=== PATIENT | female | born 1970 | race Caucasian/White ===

== ENCOUNTER → 2018-07-14 17:04 | Outpatient (CLI) | payer OTHER, SELFPAY | PROVIDERS: Family Provider Family Medicine; PCP Family Medicine; Visit Provider Nurse Practitioner Family | DX: S99.911A Unspecified injury of right ankle, initial encounter (principal); X58.XXXA Exposure to other specified factors, initial encounter | CPT/HCPCS: 73610 ==

== ENCOUNTER → 2018-08-25 08:28 | Outpatient (CLI) | payer OTHER, SELFPAY ==
--- NOTE | 2018-08-25 08:30 | BI_ITS ---
MAMMOGRAPHY - BILATERAL SCREENING REASON FOR EXAM: Female, 48 years old. Routine annual screening examination. PERTINENT HISTORY: Non-contributory. TECHNIQUE: Digital bilateral breast nenita (3D mammographic acquisition) in the CC and MLO projections. 2-D mediolateral oblique (MLO) and craniocaudad (CC) views of both breasts were obtained. CAD: Full Field Digital Mammography with Computer Added Detection was performed. COMPARISON: Comparison is made with prior study dated December 21, 2016 and June 19, 2015. FINDINGS: Breast Composition: The breasts are heterogeneously dense, which may obscure small masses. There are no dominant masses or suspicious calcifications. No other significant abnormalities are identified. There has been no significant change since the prior study. BI/SCREENING MAMM (CAD), BILAT IMPRESSION: Stable bilateral screening mammogram. Yearly follow-up mammogram recommended. (A) ASSESSMENT CATEGORY: BIRADS Category 1: Negative. A letter regarding these results will be sent to the patient by the facility within 30 days. Approximately 10% of breast cancers are not detected by mammography. A normal mammogram should not delay biopsy of a clinically suspicious abnormality. [id number] Electronically Signed: Jelani Jordan MD at 10:24 EDT Tel [phone], Service support ,
== END ==
PROVIDERS: Family Provider Family Medicine; PCP Family Medicine; Referring Provider Family Medicine; Visit Provider Family Medicine
DX: Z12.31 Encounter for screening mammogram for malignant neoplasm of breast (principal)
CPT/HCPCS: 77063; 77067

== ENCOUNTER 2020-08-29 22:30 | Emergency (ER) | payer OTHER, SELFPAY ==
[2020-08-29 22:31] VITALS: BP 112/73; PULSE 84; PULSE 87; RESP 16; TEMP 35.8; O2SAT 98; BMI 31.0
--- NOTE | 2020-08-29 22:38 | ED.RN ---
NO OLD EKGS IN MUSE
--- NOTE | 2020-08-29 23:19 | EKG12_ITS ---
Test Reason : CP Blood Pressure : / mmHG Vent. Rate : 070 BPM Atrial Rate : 070 BPM P-R Int : 158 ms QRS Dur : 090 ms QT Int : 432 ms P-R-T Axes : 045 -26 025 degrees QTc Int : 466 ms Normal sinus rhythm Normal ECG Confirmed by CHRISTAL DE LA CRUZ, DAVID ([id number]), staff editor TARYN LAY ([id number]) on 09/02/2020 12:49:18 PM Referred By: GABRIEL Confirmed By:DAVID SIEGEL MD
--- NOTE | 2020-08-29 23:20 | ED.VIS.GEN ---
History of Present Illness Chief Complaint: Chest Pain Informant: Patient Narrative: 50-year-old female with history of hiatal hernia and GERD presenting with chest pain which she describes as burning and sharp and stabbing. She is had intermittent pains for the last 3 weeks or so. She states it is sometimes more constant than others. She does not relate it to food. She tried fasting and stated that she still got intermittent pain here. She does not have shortness of breath. She is not had a cough or fever. Her last stress test was over 5 years ago. She states that it was normal. She states the only medication she takes is for GERD. Denies cardiac disease. No history of DVT/PE, no recent travel, immobilization or surgery, exogenous hormone use. Past Medical History - Allergies and Home Meds Allergies/Adverse Reactions: Allergies No Known Allergies Allergy (Verified 06/19/14 14:23) Primary Care Physician: Vince Robertson MD [Primary Care Provider] - Prior records reviewed: Yes Past Medical History: - - GERD, hiatal hernia Lives: Spouse/ Significant Other Smoking Status: Never smoker Alcohol: None Drugs: None Review of Systems General: Denies: Chills, Fever, Sweats Eyes: Denies: Visual changes - bilaterally, Diplopia ENT: Denies: Rhinorrhea, Sore throat Cardiovascular: Reports: Chest pain. Denies: Palpitations, Heart racing Respiratory: Denies: Dyspnea, Cough Gastrointestinal: Reports: Nausea. Denies: Abdominal pain, Vomiting, Diarrhea, Melena, Hematochezia Genitourinary: Denies: Dysuria, Hematuria, Frequency Musculoskeletal: Denies: Back pain, Extremity Pain Skin: Denies: Rash, Wounds Neurological: Denies: Headache, Weakness, Numbness Physical Exam Vital Signs/Narrative: Vital Signs Temp Pulse Resp BP Pulse Ox 08/29/20 22:31 96.4 F L 84 16 112/73 98 Inital Vital Signs reviewed: Yes General: Well nourished, No Acute Distress Head: Normocephalic, Atraumatic Eyes: Perrl, EOMI Cardiovascular: Regular rate, Regular rhythm, No murmurs Respiratory: No distress, CTA bilaterally, Chest nontender Extremities: Nontender, No edema Skin: Normal color, No rash. Negative for: Cyanosis, Diaphoresis Neurological: Alert, Oriented x3 Psychological: Normal affect, Normal Mood Diagnostic/Tx/Re-eval - Rhythm Strip Rhythm Strip: Sinus Rhythm Rate: 70 - EKG Initial EKG Interpretation: Sinus Rhythm, No Acute Injury Pattern - Medical Decision Making Patient was seen and evaluated on arrival for chest pain which she had been having on and off for a couple of weeks. Her heart score is 2. EKG is sinus rhythm without signs of ischemia. She is PERC negative. Initial lab work is within normal limits except for slightly low potassium. Troponin is negative. Patient will stay for delta troponin and EKG and if normal she will be discharged home to follow-up with her PCP for outpatient testing. She is amenable to this plan. Impression: 1. Chest pain ED Disposition - Plan for ED Patient: Referrals: Vince Robertson MD [Primary Care Provider] -
--- NOTE | 2020-08-29 23:27 | RAD_ITS ---
STUDY: X-RAY CHEST REASON FOR EXAM: Female, 50 years old. Chest pain for weeks. Nausea. TECHNIQUE: Single AP portable view of the chest. COMPARISON: None. FINDINGS: The lungs are clear and expanded. There is no demonstrated pleural abnormality. Normal size heart. Normal mediastinum and dao. Normal visualized pulmonary arteries. Normal visualized aortic arch and descending thoracic aorta. Normal visualized thoracic spine. Normal visualized ribs, clavicles, and shoulders. There is no demonstrated abnormality of the visualized soft tissue structures of the upper abdomen. RAD/Chest 1 View (Portable) IMPRESSION: Normal x-ray examination of the chest. Electronically Signed: Van Serrato DO at 23:46 EDT Tel [phone], Service support ,
[2020-08-29 23:31] VITALS: BP 96/66; PULSE 67; RESP 15; O2SAT 97
[2020-08-29 23:38] LABS: Anion Gap 5 (5-15); BUN 12 mg/dL (7-18); BUN/Creat Ratio 13.6 RATIO (10-20); Chloride 112 mmol/L (98-107); Creatinine, Serum 0.88 mg/dL (0.55-1.02); EST Glomerular Filtration Rate 73 mL/min (>60); Est Glom Filt Rate - Afr Amer 88 mL/min (>60); Estimated Creatinine Clearance 73.19 ml/min; Glucose 99 mg/dL (74-106); Potassium 3.4 mmol/L (3.5-5.1); Sodium Level 143 mmol/L (136-145)
[2020-08-29] MEDS: Famotidine 200 MG/20 ML MDV 20 MG in 0.9% Normal Saline (Pres. free 8 ML 300 MG IV (23:41)
[2020-08-29] MEDS: 0.9% Normal Saline 1,000 ML 1000 ML IV (23:41)
[2020-08-29] MEDS: Ondansetron 4 MG/2 ML Vial IV (23:41)
[2020-08-29 23:54] LABS: Absolute Lymphocyte Count 2.59 X10^3/uL (0.83-4.51); Absolute Neutrophil Count 5.1 X10^3/uL (2.0-7.7); Basophil# 0.02 X10^3/uL; Basophil% 0.2 % (0-1); Eosinophil# 0.11 X10^3/uL; Eosinophils% 1.3 % (0-5); Hematocrit 43.3 % (37-47); Hemoglobin 13.8 g/dL (12.0-15.0); Lymphocyte # 2.59 X10^3/ul (4.0); Lymphocyte % 31.5 % (19-41); Mean Corp Hgb Conc 31.9 g/dL (32-36); Mean Corpuscular Hgb 30.5 pg (27.0-32.0); Mean Corpuscular Volume 95.6 fL (81-99); Mean Platelet Vol. 9.6 fl (6.2-12.0); Monocyte# 0.36 X10^3/uL; Monocyte% 4.4 % (0-10); NRBC Flagged by Analyzer 0 % (0-5); Neutrophil # 5.08 X10^3/uL (2.7-7.7); Neutrophil % 61.7 % (47-70); Platelet Count 242 K/mm3 (150-450); RBC Distribution Width CV 13.5 % (11.6-14.6); Red Blood Count 4.53 M/mm3 (4.2-5.4); White Blood Count 8.2 K/mm3 (4.4-11.0)
[2020-08-30] MEDS: Morphine 2 MG/ML Syringe IV (00:24)
[2020-08-30] MEDS: Mag Hydrox/Al Hydrox/Simeth 30 ML UDC PO (00:24)
[2020-08-30 01:00] VITALS: BP 95/70; PULSE 68; RESP 20; O2SAT 99
--- NOTE | 2020-08-30 01:45 | EKG12_ITS ---
Test Reason : REPEAT CP Blood Pressure : / mmHG Vent. Rate : 057 BPM Atrial Rate : 057 BPM P-R Int : 164 ms QRS Dur : 086 ms QT Int : 470 ms P-R-T Axes : 044 -09 019 degrees QTc Int : 457 ms Sinus bradycardia Otherwise normal ECG Confirmed by CHRISTAL DE LA CRUZ, DAVID ([id number]), editorial cartoonist TARYN LAY ([id number]) on 09/02/2020 12:49:50 PM Referred By: GABRIEL Confirmed By:DAVID SIEGEL MD
[2020-08-30 02:00] VITALS: BP 99/66; PULSE 61; RESP 16; O2SAT 98
[2020-08-30 02:44] VITALS: BP 97/72; PULSE 71; RESP 18; O2SAT 97
== END 2020-08-30 02:45 | disposition home or self-care (01) ==
PROVIDERS: Emergency Provider Student in an Organized Health Care Education/Training Program; PCP Family Medicine
DX: R07.9 Chest pain, unspecified (principal); K21.9 Gastro-esophageal reflux disease without esophagitis
CPT/HCPCS: 71045; 80048; 84484; 85025; 93005; 96361; 96374; 96375; 99283; J7030; A4216; J2405; J3490

== ENCOUNTER 2023-12-13 19:32 | Emergency (ER) | payer OTHER, SELFPAY ==
[2023-12-13 19:34] VITALS: BP 125/90; PULSE 94; RESP 20; TEMP 36.3; O2SAT 100; BMI 34.4
--- NOTE | 2023-12-13 21:00 | RAD_ITS ---
INDICATION: chest pain EXAMINATION/TECHNIQUE: X-RAY - portable upright AP chest x-ray COMPARISON: 08/29/2020 FINDINGS: LINES/DEVICES: None. LUNGS: No consolidation, edema or effusion. No pneumothorax. MEDIASTINUM AND CARDIOVASCULAR STRUCTURES: Cardiac silhouette not enlarged. Central airways and mediastinal contour are unremarkable. BONES AND SOFT TISSUES: Unremarkable. RAD/Chest 1 View (Portable) IMPRESSION: No radiographic evidence of acute cardiopulmonary disease. Electronically Signed: Arsh Henson MD at 21:50 EST ,
[2023-12-13 21:01] LABS: Absolute Lymphocyte Count 1.21 X10^3/uL (0.83-4.51); Absolute Neutrophil Count 14.1 X10^3/uL (2.0-7.7); Basophil# 0.04 X10^3/uL; Basophil% 0.2 % (0-1); Eosinophil# 0.03 X10^3/uL; Eosinophils% 0.2 % (0-5); Hematocrit 46.3 % (37-47); Lymphocyte # 1.21 X10^3/ul (0.83-4.51); Lymphocyte % 7.5 % (19-41); Mean Corp Hgb Conc 32.4 g/dL (32-36); Mean Corpuscular Hgb 29.7 pg (27.0-32.0); Mean Corpuscular Volume 91.7 fL (81-99); Mean Platelet Vol. 9.5 fl (6.2-12.0); Monocyte# 0.72 X10^3/uL; Monocyte% 4.4 % (0-10); NRBC Flagged by Analyzer 0 % (0-5); Neutrophil # 14.11 X10^3/uL (2.7-7.7); Neutrophil % 87.2 % (47-70); Platelet Count 290 K/mm3 (150-450); RBC Distribution Width CV 13.8 % (11.6-14.6); RBC Distribution Width SD 46.4 fl (35.1-43.9); Red Blood Count 5.05 M/mm3 (4.2-5.4); White Blood Count 16.2 K/mm3 (4.4-11.0)
[2023-12-13 21:14] LABS: Internal QC Validated? YES +Cl - CLEAR BKGD; Pregnancy, Serum, hCG Quali. NEGATIVE Negative
--- NOTE | 2023-12-13 21:15 | EX.ED.DYSGE1 ---
HPI History of Present Illness Chief Complaint: Palpitations Informant: patient Narrative Narrative: Patient presents with nausea vomiting diarrhea and palpitations. Patient states she has been feeling good all day. She and her went to the grocery store. On the way back she started feel very nauseated. No pain at the time. She made at home but then she started to vomit. She states she then sat on the toilet for about an hour. She had multiple episodes of vomiting and diarrhea. What concerned her is that she had intermittent palpitations then. She states she really did not have chest pain. She always has a little pressure from a hiatal hernia but that is unchanged. She never saw blood in the vomitus or stool. She states she still nauseated now but it seems to have calm down a fair amount already. She did have some abdominal cramping but none at this time. No fevers. No coughing or trouble breathing. She has no history of high blood pressure, cholesterol, diabetes or family history of heart disease. She does not know her father's history side. She is on no routine medications other than herbal medications for menopause. PFSH PFSH Home Medications naproxen 500 mg tablet 500 mg PO BID PRN #20 tabs 04/27/16 [Rx Last Taken Unknown] sucralfate 1 gram tablet 1 gm PO 4X/DAY #40 tabs 08/30/20 [Rx Last Taken Unknown] ondansetron 4 mg disintegrating tablet 4 mg PO Q8H PRN PRN Nausea #10 tabs 12/13/23 [Rx Last Taken Unknown] promethazine 25 mg tablet 25 mg PO Q6H PRN PRN Nausea #10 TABLETS 12/13/23 [Rx Last Taken Unknown] Allergy/AdvReac Type Severity Reaction Status Date / Time No Known Allergies Allergy Verified 12/13/23 19:34 Social History Smoking Status: Never smoker ROS ROS ED Constitutional Constitutional ED: Denies chills, fever(s) or subjective Eyes Eyes: Denies change in vision ENT ENT ED: Denies rhinorrhea or sore throat Cardiovascular Cardiovascular: Reports palpitations and racing heartbeat; Denies chest pain Respiratory/Chest Respiratory/Chest: Denies cough or dyspnea Gastrointestinal Gastrointestinal: Reports abdominal pain, diarrhea, nausea and vomiting; Denies constipation or melena Genitourinary Genitourinary ED: Denies dysuria or hematuria Musculoskeletal Musculoskeletal: Denies myalgias Integumentary Denies rash Neurologic Neurologic: Denies headache(s), paresthesias or weakness Hematologic/Lymphatic Hematologic/Lymphatic: Denies easy bleeding or easy bruising Allergic/Immunologic Allergic/Immunologic ED: Denies urticaria EXAM Physical Exam Narrative Exam Narrative: CONSTITUTIONAL: Patient is nontoxic in appearance. The patient looks comfortable. HEENT: No notable trauma. Mucous membranes mildly dry. EYES: No conjunctival injection. No petechiae. No icterus or pallor. CARDIOVASCULAR: Regular rate. Regular rhythm. No notable murmur. No JVD. Her heart rate sounds very normal at this time. RESPIRATORY: No respiratory distress. Breathing is unlabored. No wheezes. No rhonchi. No rales. No pain with a deep breath. GASTROINTESTINAL: Not distended. Bowel sounds are normal. No tenderness. No guarding. No rebound. No palpable mass. No bruit. Overall very benign abdomen. GENITOURINARY: No tenderness over the bladder. No CVA tenderness. MUSCULOSKELETAL: Atraumatic. No peripheral edema. No cord. No tenderness along the deep venous system. No asymmetry. NEUROLOGICAL: Patient is alert and appropriate. No focal deficit noted. SKIN: No noted rashes. No diaphoresis. PSYCHIATRIC: Patient is calm. Mood is appropriate. Const Vital Signs: 12/13/23 19:34 12/13/23 21:40 12/13/23 21:40 Temperature 97.3 F L 98.2 F Temperature Source Temporal Temporal Pulse Rate 94 74 74 Respiratory Rate 20 H 16 16 Respiratory Effort Respiratory Depth Respiratory Pattern Blood Pressure 125/90 H 102/52 L 102/52 L Blood Pressure Mean 101 68 68 Pulse Ox 100 94 96 Oxygen Delivery Method Room Air Room Air Room Air 12/13/23 21:47 12/13/23 21:49 12/13/23 23:01 Temperature 98 F Temperature Source Oral Pulse Rate 61 Respiratory Rate 17 Respiratory Effort Normal Non-Labored Normal Non-Labored Respiratory Depth Normal Respiratory Pattern Normal Blood Pressure 101/74 Blood Pressure Mean 83 Pulse Ox 97 Oxygen Delivery Method Room Air Room Air 12/13/23 23:01 Temperature 98 F Temperature Source Oral Pulse Rate 70 Respiratory Rate 17 Respiratory Effort Respiratory Depth Respiratory Pattern Blood Pressure 101/64 Blood Pressure Mean 76 Pulse Ox 96 Oxygen Delivery Method Room Air MDM MDM MDM Narrative Medical decision making narrative: Patient's white count is mildly elevated but this is a nonspecific symptom. It could be from infection or demargination. Her electrolytes showed minimally low potassium at 3.3 but that should self-correct. I am reluctant to replace this as its major side effect is nausea which is the patient's major complaint. Patient's liver function test are normal. Her is negative. Her troponin is unmeasurable and this is almost 4 to 5 hours after the initial onset of her symptoms. I do not think we need a delta as she never had chest pain. Urinalysis is not a clean-catch but shows no sign of infection. My independent interpretation of the patient's single AP chest x-ray shows no acute process and final reading is same. Patient was given IV fluids and Zofran. This did help. But she had some nausea still. We gave her more Zofran and Phenergan which has helped. She has not had vomiting in 2-1/2 hours. She states nausea is controlled and she just wants to go home and rest now. I think she likely has a viral syndrome. We discussed that this could be COVID or influenza but I do not think we need to treat with antivirals and she does not want them. Therefore I do not think there is a need to check that. Lab Data Attestation: I reviewed the patient's lab results. Labs: Laboratory Results - last 24 hr 12/13/23 12/13/23 20:49 22:23 WBC 16.2 H RBC 5.05 Hgb 15.0 Hct 46.3 MCV 91.7 MCH 29.7 MCHC 32.4 RDW Std Deviation 46.4 H RDW Coeff of Pamella 13.8 Plt Count 290 MPV 9.5 Immature Gran % (Auto) 0.500 Neut % (Auto) 87.2 H Lymph % (Auto) 7.5 L Jasper % (Auto) 4.4 Eos % (Auto) 0.2 Baso % (Auto) 0.2 Absolute Neuts (auto) 14.1 H Absolute Lymphs (auto) 1.21 Nucleated RBC % 0 Sodium 139 Potassium 3.3 L Chloride 107 Carbon Dioxide 24.0 Anion Gap 8 BUN 15 Creatinine 0.94 Estim Creat Clear Calc 83.13 Est GFR (MDRD) Af Amer 81 Est GFR (MDRD) Non-Af 67 BUN/Creatinine Ratio 15.9 Glucose 106 Calcium 8.8 Total Bilirubin 0.30 AST 11 L ALT 18 Alkaline Phosphatase 96 Troponin I High Sens < 3 L Total Protein 8.0 Albumin 3.7 Globulin 4.3 H Albumin/Globulin Ratio 0.9 Serum , Qual NEGATIVE Urine Color Yellow Urine Clarity Clear Urine pH 5.0 Ur Specific [place] 1.025 Urine Protein 15 H Urine Glucose (UA) Normal Urine Ketones 5 H Urine Occult Blood Negative Urine Nitrite Negative Urine Bilirubin 1 H Urine Urobilinogen Normal Ur Leukocyte Esterase 25 H Urine RBC 0 SEEN Urine WBC 0 SEEN Ur Squamous Epith Cells 10-25 SEEN Urine Bacteria 1+ Urine Mucus 0 SEEN Radiography Diagnostic Testing: Clinical Impression(s) from Imaging Studies Chest X-Ray 12/13/23 21:00 IMPRESSION: No radiographic evidence of acute cardiopulmonary disease. Electronically Signed: Arsh Henson MD at 21:50 EST Reading Location ID and State: [address] [place] [address] Tel , Service support , Discharge Plan Triage Chief Complaint: Palpitations Other Complaint: Nausea/Vomiting Shortness of Breath ED Provider: Roland Quintero Dx/Rx/DC Orders Clinical Impression: Nausea vomiting and diarrhea, Heart palpitations Instructions: ED Diet Vomiting Diarrhea, ED Palpitations Prescriptions: New promethazine [promethazine] 25 mg tablet 25 mg PO Q6H PRN PRN (Reason: Nausea) Qty: 10 0RF ondansetron [ondansetron] 4 mg tablet,disintegrating 4 mg PO Q8H PRN PRN (Reason: Nausea) Qty: 10 0RF No Action naproxen 500 MG tablet 500 mg PO BID PRN Qty: 20 0RF sucralfate 1 GM tablet 1 gm PO 4X/DAY Qty: 40 0RF Primary Care Provider: AL DALAL Referrals: Vince Robertson MD [Med Staff - Transitions Rn Care Coordinator] - 1-2 Days if not improving Disposition Disposition: Home, Self Care
[2023-12-13] MEDS: Ondansetron 4 MG/2 ML Vial IV ×2 (21:19→22:58)
[2023-12-13] MEDS: 0.9% Normal Saline (1000mL) 1,000 ML 999 ML IV (21:19)
[2023-12-13 21:20] LABS: ALB/GLOB Ratio 0.9 RATIO (0.9-2.4); AST(SGOT) 11 U/L (15-37); Alanine Aminotransfer ALT/SGPT 18 U/L (13-56); Albumin, Serum 3.7 g/dL (3.2-5.0); Alkaline Phosphatase 96 U/L (45-117); Anion Gap 8 (5-15); BUN 15 mg/dL (7-18); BUN/Creat Ratio 15.9 RATIO (10-20); Calcium,Total 8.8 mg/dL (8.5-10.1); Chloride 107 mmol/L (98-107); Creatinine, Serum 0.94 mg/dL (0.55-1.02); EST Glomerular Filtration Rate 67 mL/min (>60); Est Glom Filt Rate - Afr Amer 81 mL/min (>60); Estimated Creatinine Clearance 83.13 ml/min; Globulin 4.3 g/dL (2.2-4.2); Glucose 106 mg/dL (74-106); Potassium 3.3 mmol/L (3.5-5.1); Sodium Level 139 mmol/L (136-145); Troponin-I HS (w/2H Reflex) < 3 pg/mL (3.0-54.0)
--- OUTSIDE RECORDS SUMMARY | 2023-12-13 21:31 | XMS RPT_ITS | CCD ---
Author Name Unknown Address [id number] [place] [address] Organization [facility] Care Team Providers Care Sweeper Driver Name Role Phone BERNHART, TERRA Unavailable Unavailable [facility] Unavailable Unavailable [facility] Unavailable Unavailable BERNHART, TERRA Unavailable Unavailable [facility] Unavailable Unavailable BERNHART, TERRA Unavailable Unavailable [facility] Unavailable Unavailable [facility] Unavailable Unavailable BOLOGNA, SAURABH A Unavailable Unavailable BOLOGNA, SAURABH A Unavailable Unavailable [facility] Unavailable Unavailable BOLOGNA, SAURABH A Unavailable Unavailable BERNHART, TERRA ([employer]) Unavailable Unavaila ble BERNHART, TERRA ([employer]) Unavailable Unavaila ble BERNHART, TERRA ([employer]) Unavailable Unavaila ble BOLOGNA, SAURABH A Unavailable Unavailable BOLOGNA, SAURABH A Unavailable Unavailable BOLOGNA, SAURABH A Unavailable Unavailable PROVIDER, UNKNOWN Attending Unavailable PROVIDER, UNKNOWN Admitting Unavailable PATIENT, SELF Referring Unavailable Natalia Vaca MD Primary Care Provider Natalia Vaca MD Primary Care Provider [phone] Natalia Vaca MD Primary Care Provider Natalia Vaca MD Primary Care Provider OLDER, DONA Referring Unavailable GANTA, NATALIA Primary Care Unavailable OLDER, DONA Referring Unavailable REGOTTI, KATHI Attending Unavailable GANTA, NATALIA Primary Care Unavailable OLDER, DONA Attending Unavailable GANTA, NATALIA Primary Care Unavailable EDSON, YOSELIN Referring Unavailable GANTA, NATALIA Primary Care Unavailable REGOTTI, KATHI Referring Unavailable GANTA, NATALIA Primary Care Unavailable SELF Referring Unavailable GANTA, NATALIA Primary Care Unavailable GANTA, NATALIA Primary Care Unavailable GANTA, NATALIA Referring Unavailable EDSON, YOSELIN Referring Unavailable GANTA, NATALIA Primary Care Unavailable GANTA, NATALIA Primary Care Unavailable REGOTTI, KATHI Attending Unavailable [facility] Un[facility] [place] Attending Unavailable [facility] Unavailable KATHI MOON Referring Unavailable [facility] Unavailable Medications Current Medications Medication Drug Class(es) Dates Sig (Normalized) Sig (Original) perflutren lipid microspheres 1.3 mL in NaCl (PF) 0.9% 10 mL injection (DEFINITY) (16 sources) Start: 08-26-2022 End: 11-25-2023 perflutren lipid microspheres 1.3 mL in NaCl (PF) 0.9% 10 mL injection (DEFINITY) predniSONE 10 mg oral tablet (1 source) Start: 05-14-2023 End: 05-23-2023 predniSONE (DELTASONE) 10 mg tablet Indications: Acute pain of right knee Take 4 tabs daily for 3 days, then 2 tabs daily for 3 days, then 1 tab daily for 3 days with food. 21 tablet 0 05/14/2023 05/23/2023 Active Completed/Discontinued Medications Medication Drug Class(es) Dates Sig (Normalized) Sig (Original) aspirin 81 mg delayed release oral tablet (7 sources) Platelet Aggregation Inhibitor, Nonsteroidal Anti-inflammatory Drug End: 08-26-2022 take 1 tablet by mouth once daily aspirin, enteric coated (ASPIRIN, ENTERIC COATED) 81 mg EC tablet Take 81 mg by mouth once daily. 0 08/26/2022 Discontinued (Discontinued by Patient) Problems Active Problems Problem Classification Problem Date Documented Date Episodic/Chronic Esophageal disorders (20 sources) Gastroesophageal reflux disease; Translations: [Gastro-esophageal reflux disease without esophagitis] Onset: 08-08-2019 Chronic Immunizations and screening for infectious disease (5 sources) Patient encounter status; Translations: [Encounter for immunization] Episodic Joint disorders and dislocations; trauma-related (3 sources) Crepitus of right knee joint; Translations: [Other internal derangements of right knee] 06-13-2021 Chronic Menstrual disorders (20 sources) Dysmenorrhea; Translations: [Dysmenorrhea, unspecified] Onset: 03-20-2010 03-20-2010 Chronic Other lower respiratory disease (1 source) Dyspnea; Translations: [Shortness of breath] Episodic Other non-traumatic joint disorders (1 source) Osteophyte of right knee; Translations: [Osteophyte, right knee] 06-13-2021 Episodic Other nutritional; endocrine; and metabolic disorders (1 source) Obesity; Translations: [Obesity, unspecified] Chronic Other screening for suspected conditions (not mental disorders or infectious disease) (4 sources) Mammography abnormal; Translations: [Other abnormal and inconclusive findings on diagnostic imaging of breast] Onset: 12-03-2023 Episodic Other skin disorders (1 source) Excessive sweating; Translations: [Generalized hyperhidrosis] Episodic Residual codes; unclassified (1 source) HIV screening declined; Translations: [Procedure and treatment not carried out because of patient's decision for unspecified reasons] Episodic Residual codes; unclassified (1 source) Procedure and treatment not carried out because of patient's decision for unspecified reasons; Translations: [Surgical or other procedure not carried out because of patient's decision] Episodic Unclassified (1 source) Unknown / UNK(Unknown) Onset: 12-09-2017 Urinary tract infections (20 sources) Interstitial cystitis (chronic) without hematuria; Translations: [Chronic interstitial cystitis] Onset: 12-09-2017 12-09-2017 Chronic Past or Other Problems Problem Classification Problem Date Documented Da te Episodic/Chronic Cardiac dysrhythmias (20 sources) Palpitations; Translations: [Palpitations] Onset: 04-08-2013 Episodic Genitourinary symptoms and ill-defined conditions (20 sources) Urgency of urination; Translations: [Urgency of urination] Onset: 12-09-2017 12-09-2017 Episodic Nonspecific chest pain (20 sources) Chest pain; Translations: [Chest pain, unspecified] Onset: 04-08-2013 Episodic Other non-traumatic joint disorders (9 sources) Pain in right knee; Translations: [Pain in joint, lower leg] Onset: 07-14-2023 Episodic Pathological fracture (4 sources) Fracture of femur; Translations: [Pathological fracture, right femur, initial encounter for fracture] Onset: 07-28-2023 07-28-2023 Episodic Results Test Name Value Interpretation Reference Range Facil ity Vital Signs Date Time Vital Sign Value Performing Clinician Myles hobbs 07-14-2023 13:10-0400 Body height 167.6 cm Kathi Moon PA-C Work Phone: [facility] 07-14-2023 13:10-0400 Body weight 93.44 kg Kathi Sarai CASTILLO Work Phone: [facility] 06-07-2023 13:40-0400 Body weight 92.99 kg Dona Older ENTRY LEVEL SALES CONSULTANT.[employer] Work Phone: [facility] 06-07-2023 13:40-0400 Diastolic blood pressure 70 mm[Hg] Dona Older ENTRY LEVEL SALES CONSULTANT.[employer] Work Phone: [facility] 06-07-2023 13:40-0400 Heart rate 76 /min Dona Older ENTRY LEVEL SALES CONSULTANT.[employer] Work Phone: [facility] 06-07-2023 13:40-0400 Respiratory rate 16 /min Dona Older ENTRY LEVEL SALES CONSULTANT.[employer] Work Phone: [facility] 06-07-2023 13:40-0400 Systolic blood pressure 128 mm[Hg] Dona Older ENTRY LEVEL SALES CONSULTANT.[employer] Work Phone: [facility] 05-14-2023 12:02-0400 Body temperature 97.9 [degF] Yoselin Edson ENTRY LEVEL SALES CONSULTANT.[employer] Work Phone: [facility] 05-14-2023 12:02-0400 Body weight 92.26 kg Yoselin Edson ENTRY LEVEL SALES CONSULTANT.[employer] Work Phone: [facility] 05-14-2023 12:02-0400 Diastolic blood pressure 74 mm[Hg] Yoselin Edson ENTRY LEVEL SALES CONSULTANT.[employer] Work Phone: [facility] 05-14-2023 12:02-0400 Heart rate 82 /min Yoselin Edson ENTRY LEVEL SALES CONSULTANT.[employer] Work Phone: [facility] 05-14-2023 12:02-0400 Respiratory rate 18 /min Yoselin Edson ENTRY LEVEL SALES CONSULTANT.[employer] Work Phone: [facility] 05-14-2023 12:02-0400 SaO2% (BldA) [Mass fraction] 98 % Yoselin Edson ENTRY LEVEL SALES CONSULTANT.[employer] Work Phone: [facility] 05-14-2023 12:02-0400 Systolic blood pressure 132 mm[Hg] Yoselin Edson ENTRY LEVEL SALES CONSULTANT.[employer] Work Phone: [facility] 09-28-2022 08:57-0500 Body weight 88 kg Dona Older ENTRY LEVEL SALES CONSULTANT.[employer] Work Phone: [facility] 09-28-2022 08:57-0500 Diastolic blood pressure 68 mm[Hg] Dnoa Older ENTRY LEVEL SALES CONSULTANT.[employer] Work Phone: [facility] 09-28-2022 08:57-0500 Heart rate 68 /min Dona Older ENTRY LEVEL SALES CONSULTANT.[employer] Work Phone: [facility] 09-28-2022 08:57-0500 Respiratory rate 16 /min Dona Older ENTRY LEVEL SALES CONSULTANT.[employer] Work Phone: [facility] 09-28-2022 08:57-0500 Systolic blood pressure 122 mm[Hg] Dona Older ENTRY LEVEL SALES CONSULTANT.[employer] Work Phone: [facility] 08-26-2022 15:38-0400 Body weight 88 kg Dona Older ENTRY LEVEL SALES CONSULTANT.[employer] Work Phone: [facility] 08-26-2022 15:38-0400 Diastolic blood pressure 78 mm[Hg] Dona Older ENTRY LEVEL SALES CONSULTANT.[employer] Work Phone: [facility] 08-26-2022 15:38-0400 Heart rate 64 /min Dona Older ENTRY LEVEL SALES CONSULTANT.[employer] Work Phone: [facility] 08-26-2022 15:38-0400 Respiratory rate 16 /min Dona Older ENTRY LEVEL SALES CONSULTANT.[employer] Work Phone: [facility] 08-26-2022 15:38-0400 Systolic blood pressure 114 mm[Hg] Dona Older ENTRY LEVEL SALES CONSULTANT.[employer] Work Phone: [facility] 05-05-2022 09:09-0400 Body weight 94.35 kg Sinai Goodson ENTRY LEVEL SALES CONSULTANT.PSYCHIATRY PHYSICIAN Work Phone: [facility] 05-05-2022 09:09-0400 Diastolic blood pressure 70 mm[Hg] Sinai Goodson ENTRY LEVEL SALES CONSULTANT.PSYCHIATRY PHYSICIAN Work Phone: [facility] 05-05-2022 09:09-0400 Heart rate 60 /min Sinai Ochoas ENTRY LEVEL SALES CONSULTANT.PSYCHIATRY PHYSICIAN Work Phone: [facility] 05-05-2022 09:09-0400 Respiratory rate 16 /min Sinai Ochoas ENTRY LEVEL SALES CONSULTANT.PSYCHIATRY PHYSICIAN Work Phone: [facility] 05-05-2022 09:09-0400 Systolic blood pressure 110 mm[Hg] Sinai Ochoas ENTRY LEVEL SALES CONSULTANT.PSYCHIATRY PHYSICIAN Work Phone: [facility] Encounters Encounter Date Encounter Type Care Provider Facility Start: 12-03-2023 End: 12-03-2023 ambulatory NATALIA VACA Facility:[facility] Start: 11-10-2023 ambulatory Natalia Beatty Work Phone: Internal Medicine [facility] Start: 11-04-2023 End: 11-04-2023 ambulatory NATALIA NOLA Facility:[facility] Start: 09-16-2023 End: 09-16-2023 ambulatory KATHI MOON Facility:[facility] Start: 09-16-2023 End: 09-16-2023 Patient encounter procedure Kathi Moon PA-C Work Phone: Orthopaedics Procedures Date Procedure Procedure Detail Performing Clinician Start: 07-20-2023 Mri any jt lower extrem w/o contrast matrl Kathi MARTINEZ-Evelyn Work Phone: Start: 07-16-2023 Lipid 1996 panel - Serum or Plasma Lorenzo Bird AT Work Phone: Start: 05-14-2023 Radiologic exam knee complete 4/more views Yoselin Sandhu ENTRY LEVEL SALES CONSULTANT.[employer] Work Phone: Start: 09-29-2022 End: 09-29-2022 Mammography Dona Older ENTRY LEVEL SALES CONSULTANT.[employer] Work Phone: Start: 08-26-2022 Mammography Dona Older ENTRY LEVEL SALES CONSULTANT.[employer] Work Phone: Start: 10-17-2021 Colonoscopy Sinai Goodson ENTRY LEVEL SALES CONSULTANT.CN S Work Phone: Start: 08-21-2021 Radiologic exam knee complete 4/more views Megan Velazquez PA-C Work Phone: Start: 08-20-2021 Mammography Sinai Goodson LALITA.CN S Work Phone: Start: 08-19-2021 Adult depression screening assessment Sinai Goodson LALITA.PSYCHIATRY PHYSICIAN Work Phone: Start: 06-13-2021 Mri any jt lower extrem w/o contrast matrl Volodymyr Paul PA-C Work Phone: Start: 04-28-2021 Radiologic examination knee 1/2 views [facility] Provider Start: 08-26-2019 Electrocardiogram Plan of Treatment Date Care Activity Detail Author Start: 10-17-2031 Colonoscopy COLONOSCOPY [facility] Start: 10-17-2031 COLORECTAL CANCER SCREENING COLORECTAL CANCER SCREENING [facility] Start: 10-17-2031 Screening for malignant neoplasm of colon [facility] Start: 07-16-2028 Lipid 1996 panel - Serum or Plasma Lipid Screening [facility] Start: 07-16-2028 Lipid panel Lipid Screening [facility] Start: 05-05-2027 LIPID SCREEN LIPID SCREEN [facility] Start: 09-01-2026 LIPID SCREEN LIPID SCREEN [facility] Start: 08-28-2026 Urine microalbumin profile DTaP,Tdap,Td Vaccine (2 - Td or Tdap) [facility] Start: 07-16-2026 Diabetes Screening Diabetes Screening [facility] Start: 08-03-2025 DIABETES SCREEN DIABETES SCREEN [facility] Start: 05-05-2025 DIABETES SCREEN DIABETES SCREEN [facility] Start: 07-31-2024 DIABETES SCREEN DIABETES SCREEN [facility] Start: 11-08-2023 Depression Assessment Depression Assessment [facility] Start: 09-29-2023 Mammography [facility] Start: 09-29-2023 Screening for malignant neoplasm of breast Mammogram Screening [facility] Start: 08-26-2023 Mammography MAMMOGRAM [facility] Start: 07-09-2023 Covid-19 Vaccine ( season) Covid-19 Vaccine () [facility] Start: 07-09-2023 Influenza vaccination [facility] Start: 06-07-2023 End: 08-07-2023 CBC W Auto Differential panel - Blood CBC + DIFF Lab Routine Annual physical exam Expected: 06/07/2023, Expires: 08/07/2023 [facility] Work Phone: Payers Date Payer Category Payer Unknown [id number] 2020 Private Health Insurance [employer] A ETNA CHOICE POS II [id number] 2020-Present [phone] [address] [place] [address] POS [id number] 2020 Private Health Insurance [id number] 2020 Unknown [id number] 1970 Unknown [id number] Private Health Insurance [id number] Social History Date Type Detail Facility Start: 12-10-2012 End: 07-14-2023 Tobacco smoking status NHIS Ex-smoker [facility] End: 11-08-2016 History of tobacco use Current smoker [facility] End: 11-08-2016 History of tobacco use Cigarette Smoker [facility] Start: 12-10-2012 End: 07-14-2023 Tobacco use and exposure Smokeless tobacco non-user [facility] Start: 05-05-2022 End: 11-04-2023 Alcohol intake Current drinker of alcohol (finding) [facility] Start: 05-05-2022 End: 07-14-2023 Alcohol intake [facility] Start: 08-19-2021 History SDOH Alcohol Frequency 3 [facility] Start: 08-19-2021 End: 08-26-2022 History SDOH Alcohol Std Drinks 2 [facility] Start: 08-19-2021 End: 08-26-2022 History SDOH Alcohol Binge 1 [facility] Start: 12-09-2017 History SDOH Alcohol Comment occassionally [facility] Start: 08-19-2021 History SDOH Social Connections Phone 5 [facility] Start: 08-19-2021 History SDOH Social Connections [facility] 98 [facility] Start: 08-19-2021 History SDOH Physical Activity DPW 0 [facility] Start: 08-19-2021 Education 12 [facility] Start: 09-28-2019 End: 07-14-2023 Tobacco Comment Used to smoke 1 pack every 3-4 days [facility] Start: 1970 Sex Assigned At Female [facility] Start: 03-29-2021 End: 09-29-2022 Exposure to SARS-CoV-2 (event) Not sure [facility] Work Phone: Start: 05-25-2022 End: 06-04-2022 Exposure to SARS-CoV-2 (event) Unable to assess [facility] Start: 08-19-2021 End: 07-14-2023 Social connection and isolation panel [facility] How often do you att end congregation or congregational services? Patient refused [facility] Do you belong to any clubs or organizations such as congregation groups, unions, fraternal or athletic groups, or school groups? No [facility] Are you now , , , , never or living with a partner? [facility] How often to you hav e a drink containing alcohol? 2-4 times a month [facility] How many standard dr inks containing alcohol do you have on a typical day? 3 or 4 [facility] How often do you hav e 6 or more drinks on 1 occasion? Never [facility] Do you feel stress - tense, restless, nervous, or anxious, or unable to sleep at night because your mind is troubled all the time - these days [OSQ] Not at all [facility] (I/We) worried daniela er (my/our) food would run out before (I/we) got money to buy more. Never true [facility] Start: 09-28-2019 Gender identity Identifies as female gender (finding) [facility] Start: 09-28-2019 Sexual orientation Heterosexual (finding) [facility] How many standard dr inks containing alcohol do you have on a typical day? 1 or 2 [facility] How often do you hav e 6 or more drinks on 1 occasion? Less than monthly [facility] Start: 09-28-2019 Education 13 [facility] Medical Equipment Procedure Code Equipment Code Equipment Origin al Text Equipment Identifier Dates [id number] Implant - [id number] Start: 08-13-2010 Clinical Notes 04-07-2013 to 12-03-2023 Kathi Moon PA-C - 09/16/2023 3:19 PM ESTTelephone Encounter - Colleen Briggs Ma - 08/23/2023 3:08 PM EDTTelephone Encounter - Kathi Moon PA-C - 08/18/2023 4:17 PM EDT Note Date & Type Note Facility 12-03-2023 Note HNO ID: [id number] Author: MARGARET LLANES Mammo Tech Service: ? Author Type: Brewmaster Type: Progress Notes Filed: 12/03/2023 14:37 Note Text: Radiology Service Progress Note PATIENT NAME: Janet Montesinos DATE OF SERVICE: December 03, 2023 TIME: 2:19 PM PATIENT IDENTITY VERIFICATION COMPLETED USING TWO (2) IDENTIFIERS: Name and Date of confirmed by patient verbally. FALL SCREENING: Has the patient had 2 falls in the last year or 1 fall with injury or currently using an Ambulatory Assistive Device (Walker, Cane, Wheelchair, Crutches, etc.)? No PATIENT GENDER DATA: Female. status: : No status: NO. PATIENT RELEVANT IMPLANT DATA REVIEWED: Not Applicable PATIENT PRESENTS WITH AN IMPLANTABLE OR ATTACHED COMMUTER PILOT: No RADIOLOGY DEPARTMENT: Mammography PERIPHERAL IV DATA: Not applicable SIGNED BY: Margaret Llanes [employer] Anna December 03, 2023 2:19 PM [facility] 11-10-2023 Note Patient Outreach (IN [facility]) JANET MONTESINOS ([id number]) 1970 F Date Time Provider Department 11/10/23 NATALIA VACA During your visit today, we recorded the following information about you: Allergies As of Date: 11/10/2023 (No Known Allergies) Date Reviewed: 11/04/2023 Reviewed by: Becky العراقي LPN - Fully Assessed Visit Diagnosis:Encounter for screening mammogram for breast cancer [Z12.31] Order(s):RADHA CISNEROS [[id number]] Order #: [id number] FUTURE Prescriptions as of 11/15/2023 - ibuprofen (MOTRIN) 600 mg tablet Take 1 tablet by mouth every 8 hours as needed for pain. - omeprazole (PRILOSEC) 20 mg capsule Take 1 capsule by mouth once daily. - famotidine (PEPCID) 20 mg tablet Take 1 tablet by mouth at bedtime as needed. - semaglutide (OZEMPIC) 0.25 mg or 0.5 mg(2 mg/1.5 mL) pen Inject 0.5 mg subcutaneously one time a week. - vitamin D3-vitamin K2, MK4, (K2 PLUS D3) 1,000-100 unit-mcg tab Take as directed - OTC NUTRITIONAL SUPPLEMENT Calcium 1000 mg + Magnesium 500 mg + Zinc 25 mg take 4 capsules daily Facility-Administered Medications as of 11/15/2023 - perflutren lipid microspheres 1.3 mL in NaCl (PF) 0.9% 10 mL injection (DEFINITY) - sodium chloride 0.9 % (flush) 10 mL (BD POSIFLUSH) Meds Comments as of 12/22/2017: No current medications Problem List As Of Date 11/10/2023 Noted Resolved Dysmenorrhea [N94.6] 03/20/2010 Menorrhagia [N92.0] 03/20/2010 SUMMARY [V999.95] 04/07/2013 04/08/2013 Chest pain [R07.9] 04/08/2013 Palpitations [R00.2] 04/08/2013 IC (interstitial cystitis) [N30.10] 12/09/2017 Urgency of urination [R39.15] 12/09/2017 GERD (gastroesophageal reflux disease) [K21.9] 08/2019 Encounter Status:Closed by JANICE JACKSON on 11/15/23 [facility] 11-04-2023 Note HNO ID: [id number] Author: Yoselin Sandhu APRN.[employer] Service: ? Author Type: Nurse Practitioner Type: Progress Notes Filed: 11/04/2023 2:24 PM Note Text: Subjective HPI HPI Janet Montesinos is a 53 year old female who presents today for CC of right foot pain/swelling, no injury noted. This started few weeks ago. Has tried otc medication for relief. Symptoms are worsened by rom/walking. Risk factors recently on crutches for knee injury, pain started after getting off crutches. .Patient presents with: right foot pain: Right foot pain and swelling x > 1 month-was using crutches prior not sure if this is the cause PAST MEDICAL HISTORY Diagnosis Date Abdominal pain Depression resolved Dysmenorrhea 03/20/2010 GERD (gastroesophageal reflux disease) 08/2019 Hiatal hernia IC (interstitial cystitis) Menorrhagia 03/20/2010 Urgency of urination PAST SURGICAL HISTORY Procedure Laterality Date ABDOMINAL SURGERY HX BLADDER SURGERY HX bladder stretch COLONOSCOPY FLX DX W/COLLJ SPEC WHEN PFRMD 10/17/2021 HYSTERECTOMY 2011 HYSTEROSCOPY BI TUBE OCCLUSION W/PERM IMPLNTS 08/13/2010 ESSURE PROCEDURE performed by MELISSA LAU at OR HYSTEROSCOPY ENDOMETRIAL ABLATION 08/13/2010 HYSTEROSCOPY, ABLATION ENDOMETRIAL NOVASURE performed by MELISSA LAU at OR SKIN BIOPSY HX VAGINAL HYSTERECTOMY ALLERGIES Patient has no known allergies. MEDICATIONS ibuprofen (MOTRIN) 600 mg tabletTake 1 tablet by mouth every 8 hours as needed for pain.Disp: 30 tabletRfl: 1 omeprazole (PRILOSEC) 20 mg capsuleTake 1 capsule by mouth once daily.Disp: 90 capsuleRfl: 3 predniSONE (DELTASONE) 10 mg tabletTake 4 tabs daily for 3 days, then 2 tabs daily for 3 days, then 1 tab daily for 3 days with food.Disp: 21 tabletRfl: 0 famotidine (PEPCID) 20 mg tabletTake 1 tablet by mouth at bedtime as needed.Disp: 30 tabletRfl: 1 (Patient not taking: Reported on 05/14/2023) semaglutide (OZEMPIC) 0.25 mg or 0.5 mg(2 mg/1.5 mL) penInject 0.5 mg subcutaneously one time a week.Disp: 2 EachRfl: 5 (Patient not taking: Reported on 05/14/2023) vitamin D3-vitamin K2, MK4, (K2 PLUS D3) 1,000-100 unit-mcg tabTake as directedDisp: Rfl: OTC NUTRITIONAL SUPPLEMENTCalcium 1000 mg + Magnesium 500 mg + Zinc 25 mg take 4 capsules dailyDisp: Rfl: FAMILY HISTORY Problem Relation Age of Onset Blood Disease Mother Blood Clots other (Migraines) Mother Hypertension Father Prostate Cancer Maternal Grandfather Heart Other Heart Issues on Paternal side of family Blood Clots Maternal Grandmother Colon Cancer No Family History Social History Tobacco Use Smoking status: Former Types: Cigarettes Quit date: 2016 Years since quittin.9 Smokeless tobacco: Never Tobacco comments: Used to smoke 1 pack every 3-4 days Vaping Use Vaping Use: Never used Substance Use Topics Alcohol use: Yes Alcohol/week: 2.0 standard drinks of alcohol Types: 2 Cans of Beer (12oz) per week Comment: occassionally Drug use: Yes Types: Marijuana Comment: Medical Marijuana -- for pain PRN; less than weekly ROS Objective Blood pressure 116/78, pulse 70, temperature 36.5 ?C (97.7 ?F), temperature source Tympanic, resp. rate 18, weight 97.1 kg (214 lb), last menstrual period 08/07/2010, SpO2 100%. Physical Exam Constitutional: General: She is not in acute distress. Appearance: She is not toxic-appearing or diaphoretic. HENT: Head: Normocephalic and atraumatic. Cardiovascular: Pulses: Dorsalis pedis pulses are 2+ on the right side. Posterior tibial pulses are 2+ on the right side. Pulmonary: Effort: Pulmonary effort is normal. No accessory muscle usage or respiratory distress. Musculoskeletal: Feet: Neurological: Mental Status: She is alert and oriented to person, place, and time. ASSESSMENT/PLAN: 1. Foot pain, right - ICD9: 729.5, ICD10: M79.671 -no bony abnormality noted on xray -Rest, Ice, Compression, Elevation discussed -follow up with primary care if symptoms persist/worsen in 10-14 days - with salon assistant -post op shoe provided for relief - XR FOOT GENERAL 3V AP/LAT/OBL RIGHT IMPRESSION: No acute fracture or dislocation. Dictated by : GABRIELA KIRAN MD - PREDNISONE 10 MG TABLET Yoselin Sandhu APRN.TECHNICAL SUPPORT [employer] [facility] 11-04-2023 Note HNO ID: [id number] Author: Dayana Jim RT(Eva) Service: Radiology Author Type: Technologist Type: Progress Notes Filed: 11/04/2023 1:54 PM Note Text: Radiology Service Progress Note PATIENT NAME: Janet Montesinos DATE OF SERVICE: November 04, 2023 TIME: 1:40 PM PATIENT IDENTITY VERIFICATION COMPLETED USING TWO (2) IDENTIFIERS: Name and Date of confirmed by patient verbally. FALL SCREENING: Has the patient had 2 falls in the last year or 1 fall with injury or currently using an Ambulatory Assistive Device (Walker, Cane, Wheelchair, Crutches, etc.)? No PATIENT GENDER DATA: Female. status: : No status: NO. PATIENT RELEVANT IMPLANT DATA REVIEWED: Not Applicable RADIOLOGY DEPARTMENT: General X-ray: Exam(s) Completed: Lower Extremity X-Ray(s): Foot, Right and Wt. Bearing PERIPHERAL IV DATA: Not applicable SIGNED BY: RT Donna(Eva) November 04, 2023 1:40 PM [facility] 09-16-2023 Note HNO ID: [id number] Author: Kathi Moon PA-C Service: ? Author Type: Physician Agriculture Professor Type: Progress Notes Filed: 09/16/2023 3:26 PM Note Text: Kathi Moon PA-C Established Patient Department of Orthopaedics Orthopaedics [address] [place] [address] Dept: [phone] September 16, 2023 SUBJECTIVE: CHIEF COMPLAINT: Established Patient and Follow Up of the Right Knee HPI: Ms. Janet Montesinos is a 53 year old female. She was last seen in the office on 07/28/2023 where an dry heat cabinet attendant brace was ordered and she was instructed to be NWB. She presents today for follow up. Today she rates her pain a 1 on a scale of 0 to 10. She has some pain/discomfort at the end of the day. She notes that she wore a hinged knee brace and used her crutches until last week and has been ambulating without assistance since. She takes occasional advil as needed. She denies any recent injury or the onset of new or worsening symptoms. Past Medical History: PAST MEDICAL HISTORY Diagnosis Date Abdominal pain Depression resolved Dysmenorrhea 03/20/2010 GERD (gastroesophageal reflux disease) 08/2019 Hiatal hernia IC (interstitial cystitis) Menorrhagia 03/20/2010 Urgency of urination Past Surgical History: PAST SURGICAL HISTORY Procedure Laterality Date ABDOMINAL SURGERY HX BLADDER SURGERY HX bladder stretch COLONOSCOPY FLX DX W/COLLJ SPEC WHEN PFRMD 10/17/2021 HYSTERECTOMY 2011 HYSTEROSCOPY BI TUBE OCCLUSION W/PERM IMPLNTS 08/13/2010 ESSURE PROCEDURE performed by MELISSA LAU at OR HYSTEROSCOPY ENDOMETRIAL ABLATION 08/13/2010 HYSTEROSCOPY, ABLATION ENDOMETRIAL NOVASURE performed by MELISSA LAU at OR SKIN BIOPSY HX VAGINAL HYSTERECTOMY Family History: FAMILY HISTORY Problem Relation Age of Onset Blood Disease Mother Blood Clots other (Migraines) Mother Hypertension Father Prostate Cancer Maternal Grandfather Heart Other Heart Issues on Paternal side of family Blood Clots Maternal Grandmother Colon Cancer No Family History Social History: Social History Tobacco Use Smoking status: Former Types: Cigarettes Quit date: 2016 Years since quittin.8 Smokeless tobacco: Never Tobacco comments: Used to smoke 1 pack every 3-4 days Vaping Use Vaping Use: Never used Substance Use Topics Alcohol use: Yes Alcohol/week: 5.0 standard drinks of alcohol Types: 2 Cans of Beer (12oz) per week Comment: occassionally Drug use: Yes Types: Marijuana Comment: Medical Marijuana -- for pain PRN; less than weekly Medications: Current Outpatient Medications Medication Sig ibuprofen (MOTRIN) 600 mg tablet Take 1 tablet by mouth every 8 hours as needed for pain. omeprazole (PRILOSEC) 20 mg capsule Take 1 capsule by mouth once daily. famotidine (PEPCID) 20 mg tablet Take 1 tablet by mouth at bedtime as needed. (Patient not taking: Reported on 05/14/2023) semaglutide (OZEMPIC) 0.25 mg or 0.5 mg(2 mg/1.5 mL) pen Inject 0.5 mg subcutaneously one time a week. (Patient not taking: Reported on 05/14/2023) vitamin D3-vitamin K2, MK4, (K2 PLUS D3) 1,000-100 unit-mcg tab Take as directed OTC NUTRITIONAL SUPPLEMENT Calcium 1000 mg + Magnesium 500 mg + Zinc 25 mg take 4 capsules daily Current Facility-Administered Medications Medication Dose Route Frequency perflutren lipid microspheres 1.3 mL in NaCl (PF) 0.9% 10 mL injection (DEFINITY) INTRAVENOUS DIRECTED PRN sodium chloride 0.9 % (flush) 10 mL (BD POSIFLUSH) 10 mL INTRAVENOUS DIRECTED PRN Allergies: Patient has no known allergies. ROS: General: negative for fatigue, malaise, weight loss/gain Musculoskeletal: see HPI Psych: no depression, anxiety OBJECTIVE: Ms. Janet Montesinos is a pleasant 53 year old in no apparent distress. Gen:LMP 08/07/2010 nl development, non obese, no deformities ENT: Normocephalic, normal hearing, moist mucosa CV: Pulses:DP/PT= 2+ and symmetric, capillary refill < 2 secs, no peripheral edema/varicosities Skin: no rash, bruising or lesions. Good turgor. Psych: cooperative and appropriate, alert and oriented x 3, good mood and affect. Musculoskeletal: Left knee, bilateral hips and ankles FROM without pain or limitation. RT Knee: Alignment: Neutral Active Extension 0 and Active Flexion 110 Extension lag: No Pain with ROM: No Effusion: Slight Erythema: No Ecchymosis: No Tender to the palpation of None Pain with patellar compression: No Stability: Anterior/Posterior stable and Varus/Valgus stable Patellofemoral crepitus: Yes Quad Atrophy: No Margret's: Negative Anterior drawer: Negative IMAGING: Not indicated ASSESSMENT: M84.451D Insufficiency fracture of right femur with routine healing, subsequent encounter (primary encounter diagnosis) PLAN: Reviewed images taken previously. Discussed ok to advance activity as tolerated. She will restart the HEP she participated in last ti (more content not included)... [facility] 09-16-2023 History of Presen t illness Narrative Kathi Moon PA-C Established Patient Department of Orthopaedics Orthopaedics [address] [place] [id number] Dept: [phone] September 16, 2023 SUBJECTIVE: CHIEF COMPLAINT: Established Patient and Follow Up of the Right Knee HPI: Ms. Janet Montesinos is a 53 year old female. She was last seen in the office on 07/28/2023 where an dry heat cabinet attendant brace was ordered and she was instructed to be NWB. She presents today for follow up. Today she rates her pain a 1 on a scale of 0 to 10. She has some pain/discomfort at the end of the day. She notes that she wore a hinged knee brace and used her crutches until last week and has been ambulating without assistance since. She takes occasional advil as needed. She denies any recent injury or the onset of new or worsening symptoms. Past Medical History: PAST MEDICAL HISTORY Diagnosis Date Abdominal pain Depression resolved Dysmenorrhea 03/20/2010 GERD (gastroesophageal reflux disease) 08/2019 Hiatal hernia IC (interstitial cystitis) Menorrhagia 03/20/2010 Urgency of urination Past Surgical History: PAST SURGICAL HISTORY Procedure Laterality Date ABDOMINAL SURGERY HX BLADDER SURGERY HX bladder stretch COLONOSCOPY FLX DX W/COLLJ SPEC WHEN PFRMD 10/17/2021 HYSTERECTOMY 2012 HYSTEROSCOPY BI TUBE OCCLUSION W/PERM IMPLNTS 08/13/2010 ESSURE PROCEDURE performed by MELISSA LAU at OR HYSTEROSCOPY ENDOMETRIAL ABLATION 08/13/2010 HYSTEROSCOPY, ABLATION ENDOMETRIAL NOVASURE performed by MELISSA LAU at OR SKIN BIOPSY HX VAGINAL HYSTERECTOMY Family History: FAMILY HISTORY Problem Relation Age of Onset Blood Disease Mother Blood Clots other (Migraines) Mother Hypertension Father Prostate Cancer Maternal Grandfather Heart Other Heart Issues on Paternal side of family Blood Clots Maternal Grandmother Colon Cancer No Family History Social History: Social History Tobacco Use Smoking status: Former Types: Cigarettes Quit date: 2016 Years since quittin.8 Smokeless tobacco: Never Tobacco comments: Used to smoke 1 pack every 3-4 days Vaping Use Vaping Use: Never used Substance Use Topics Alcohol use: Yes Alcohol/week: 5.0 standard drinks of alcohol Types: 2 Cans of Beer (12oz) per week Comment: occassionally Drug use: Yes Types: Marijuana Comment: Medical Marijuana -- for pain PRN; less than weekly Medications: Current Outpatient Medications Medication Sig ibuprofen (MOTRIN) 600 mg tablet Take 1 tablet by mouth every 8 hours as needed for pain. omeprazole (PRILOSEC) 20 mg capsule Take 1 capsule by mouth once daily. famotidine (PEPCID) 20 mg tablet Take 1 tablet by mouth at bedtime as needed. (Patient not taking: Reported on 05/14/2023) semaglutide (OZEMPIC) 0.25 mg or 0.5 mg(2 mg/1.5 mL) pen Inject 0.5 mg subcutaneously one time a week. (Patient not taking: Reported on 05/14/2023) vitamin D3-vitamin K2, MK4, (K2 PLUS D3) 1,000-100 unit-mcg tab Take as directed OTC NUTRITIONAL SUPPLEMENT Calcium 1000 mg + Magnesium 500 mg + Zinc 25 mg take 4 capsules daily Current Facility-Administered Medications Medication Dose Route Frequency perflutren lipid microspheres 1.3 mL in NaCl (PF) 0.9% 10 mL injection (DEFINITY) INTRAVENOUS DIRECTED PRN sodium chloride 0.9 % (flush) 10 mL (BD POSIFLUSH) 10 mL INTRAVENOUS DIRECTED PRN Allergies: Patient has no known allergies. ROS: General: negative for fatigue, malaise, weight loss/gain Musculoskeletal: see HPI Psych: no depression, anxiety OBJECTIVE: Ms. Janet Montesinos is a pleasant 53 year old in no apparent distress. Gen:LMP 08/07/2010 nl development, non obese, no deformities ENT: Normocephalic, normal hearing, moist mucosa CV: Pulses:DP/PT= 2+ and symmetric, capillary refill < 2 secs, no peripheral edema/varicosities Skin: no rash, bruising or lesions. Good turgor. Psych: cooperative and appropriate, alert and oriented x 3, good mood and affect. Musculoskeletal: Left knee, bilateral hips and ankles FROM without pain or limitation. RT Knee: Alignment: Neutral Active Extension 0 and Active Flexion 110 Extension lag: No Pain with ROM: No Effusion: Slight Erythema: No Ecchymosis: No Tender to the palpation of None Pain with patellar compression: No Stability: Anterior/Posterior stable and Varus/Valgus stable Patellofemoral crepitus: Yes Quad Atrophy: No Margret's: Negative Anterior drawer: Negative IMAGING: Not indicated ASSESSMENT: M84.451D Insufficiency fracture of right femur with routine healing, subsequent encounter (primary encounter diagnosis) PLAN: Reviewed images taken previously. Discussed ok to advance activity as tolerated. She will restart the HEP she participated in last time this happened. She will follow up as needed. If her pain returns discussed going back into brace. Patient agreeable. FOLLOW UP INSTRUCTIONS: As needed Kathi Moon PA-C documented in this encounter [facility] 08-23-2023 Miscellaneous Notes Patient received Colleen Briggs Ma Letter written and sent over [employer]. Kathi Moon PA-C Unable to reach patient on the phone. I will try back at a later time. Kathi Castañeda PA-C Patient called and would like to know if you would write her a letter to get out of jury duty. Patient states it would be hard for her to go to jury duty with crutches. Patient is supposed to attend jury duty Aug 30 Colleen Briggs Ma documented in this encounter [facility] 08-10-2023 Note HNO ID: [id number] Author: Kathi Moon PA-C Service: ? Author Type: Physician Agriculture Professor Type: Progress Notes Filed: 08/10/2023 10:03 AM Note Text: Kathi Moon PA-C Established Patient Department of Orthopaedics Orthopaedics [address] [place] [address] Dept: [phone] Dept August 10, 2023 SUBJECTIVE: CHIEF COMPLAINT: Established Patient, Knee Pain, and Results - Mri of the Right Knee HPI: Ms. Janet Montesinos is a 53 year old female. She was last seen in the office on 07/14/2023 where an MRI was ordered of her right knee. She presents today for follow up. Today she rates her pain a 4 on a scale of 0 to 10. She notes no improvement in her knee pain since she was last seen in the office. She denies any recent injury or the onset of new or worsening symptoms. She is eager to discuss her MRI results. Past Medical History: PAST MEDICAL HISTORY Diagnosis Date Abdominal pain Depression resolved Dysmenorrhea 03/20/2010 GERD (gastroesophageal reflux disease) 08/2019 Hiatal hernia IC (interstitial cystitis) Menorrhagia 03/20/2010 Urgency of urination Past Surgical History: PAST SURGICAL HISTORY Procedure Laterality Date ABDOMINAL SURGERY HX BLADDER SURGERY HX bladder stretch COLONOSCOPY FLX DX W/COLLJ SPEC WHEN PFRMD 10/17/2021 HYSTERECTOMY 2012 HYSTEROSCOPY BI TUBE OCCLUSION W/PERM IMPLNTS 08/13/2010 ESSURE PROCEDURE performed by MELISSA LAU at OR HYSTEROSCOPY ENDOMETRIAL ABLATION 08/13/2010 HYSTEROSCOPY, ABLATION ENDOMETRIAL NOVASURE performed by MELISSA LAU at OR SKIN BIOPSY HX VAGINAL HYSTERECTOMY Family History: FAMILY HISTORY Problem Relation Age of Onset Blood Disease Mother Blood Clots other (Migraines) Mother Hypertension Father Prostate Cancer Maternal Grandfather Heart Other Heart Issues on Paternal side of family Blood Clots Maternal Grandmother Colon Cancer No Family History Social History: Social History Tobacco Use Smoking status: Former Types: Cigarettes Quit date: 2017 Years since quittin.7 Smokeless tobacco: Never Tobacco comments: Used to smoke 1 pack every 3-4 days Vaping Use Vaping Use: Never used Substance Use Topics Alcohol use: Yes Alcohol/week: 5.0 standard drinks of alcohol Types: 2 Cans of Beer (12oz) per week Comment: occassionally Drug use: Yes Types: Marijuana Comment: Medical Marijuana -- for pain PRN; less than weekly Medications: Current Outpatient Medications Medication Sig ibuprofen (MOTRIN) 600 mg tablet Take 1 tablet by mouth every 8 hours as needed for pain. omeprazole (PRILOSEC) 20 mg capsule Take 1 capsule by mouth once daily. famotidine (PEPCID) 20 mg tablet Take 1 tablet by mouth at bedtime as needed. (Patient not taking: Reported on 05/14/2023) semaglutide (OZEMPIC) 0.25 mg or 0.5 mg(2 mg/1.5 mL) pen Inject 0.5 mg subcutaneously one time a week. (Patient not taking: Reported on 05/14/2023) vitamin D3-vitamin K2, MK4, (K2 PLUS D3) 1,000-100 unit-mcg tab Take as directed OTC NUTRITIONAL SUPPLEMENT Calcium 1000 mg + Magnesium 500 mg + Zinc 25 mg take 4 capsules daily Current Facility-Administered Medications Medication Dose Route Frequency perflutren lipid microspheres 1.3 mL in NaCl (PF) 0.9% 10 mL injection (DEFINITY) INTRAVENOUS DIRECTED PRN sodium chloride 0.9 % (flush) 10 mL (BD POSIFLUSH) 10 mL INTRAVENOUS DIRECTED PRN Allergies: Patient has no known allergies. ROS: General: negative for fatigue, malaise, weight loss/gain Musculoskeletal: see HPI Psych: no depression, anxiety OBJECTIVE: Ms. Janet Montesinos is a pleasant 53 year old in no apparent distress. Gen:LMP 08/07/2010 nl development, obese, no deformities ENT: Normocephalic, normal hearing, moist mucosa CV: Pulses:DP/PT= 2+ and symmetric, capillary refill < 2 secs, no peripheral edema/varicosities Skin: no rash, bruising or lesions. Good turgor. Psych: cooperative and appropriate, alert and oriented x 3, good mood and affect. Musculoskeletal: Left knee, bilateral hips and ankles FROM without pain or limitation. RT Knee: Alignment: Varus deformity, Correctable Active Extension 0 and Active Flexion 110 Tender to the palpation of Lateral joint line Pain with patellar compression: No Stability: Anterior/Posterior stable and Varus/Valgus stable Patellofemoral crepitus: No Quad Atrophy: No IMAGIN07/20/2023 2:50 PM - Radiology, [facility] In Impression IMPRESSION: SUBCHONDRAL LATERAL FEMORAL CONDYLE BONE MARROW EDEMA CONSISTENT WITH STRESS CHANGES/DEVELOPING SUBCHONDRAL INSUFFICIENCY FRACTURE. DEGENERATIVE CHONDRAL CHANGES IN THE LATERAL AND PATELLOFEMORAL COMPARTMENTS. 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 [facility] 08-10-2023 History of Presen t illness Narrative Kathi Moon PA-C Established Patient Department of Orthopaedics Orthopaedics [address] [place] [address] Dept: [phone] Dept August 10, 2023 SUBJECTIVE: CHIEF COMPLAINT: Established Patient, Knee Pain, and Results - Mri of the Right Knee HPI: Ms. Janet Montesinos is a 53 year old female. She was last seen in the office on 07/14/2023 where an MRI was ordered of her right knee. She presents today for follow up. Today she rates her pain a 4 on a scale of 0 to 10. She notes no improvement in her knee pain since she was last seen in the office. She denies any recent injury or the onset of new or worsening symptoms. She is eager to discuss her MRI results. Past Medical History: PAST MEDICAL HISTORY Diagnosis Date Abdominal pain Depression resolved Dysmenorrhea 03/20/2010 GERD (gastroesophageal reflux disease) 08/2019 Hiatal hernia IC (interstitial cystitis) Menorrhagia 03/20/2010 Urgency of urination Past Surgical History: PAST SURGICAL HISTORY Procedure Laterality Date ABDOMINAL SURGERY HX BLADDER SURGERY HX bladder stretch COLONOSCOPY FLX DX W/COLLJ SPEC WHEN PFRMD 10/17/2021 HYSTERECTOMY 2012 HYSTEROSCOPY BI TUBE OCCLUSION W/PERM IMPLNTS 08/13/2010 ESSURE PROCEDURE performed by MELISSA LAU at OR HYSTEROSCOPY ENDOMETRIAL ABLATION 08/13/2010 HYSTEROSCOPY, ABLATION ENDOMETRIAL NOVASURE performed by MELISSA LAU at OR SKIN BIOPSY HX VAGINAL HYSTERECTOMY Family History: FAMILY HISTORY Problem Relation Age of Onset Blood Disease Mother Blood Clots other (Migraines) Mother Hypertension Father Prostate Cancer Maternal Grandfather Heart Other Heart Issues on Paternal side of family Blood Clots Maternal Grandmother Colon Cancer No Family History Social History: Social History Tobacco Use Smoking status: Former Types: Cigarettes Quit date: 2017 Years since quittin.7 Smokeless tobacco: Never Tobacco comments: Used to smoke 1 pack every 3-4 days Vaping Use Vaping Use: Never used Substance Use Topics Alcohol use: Yes Alcohol/week: 5.0 standard drinks of alcohol Types: 2 Cans of Beer (12oz) per week Comment: occassionally Drug use: Yes Types: Marijuana Comment: Medical Marijuana -- for pain PRN; less than weekly Medications: Current Outpatient Medications Medication Sig ibuprofen (MOTRIN) 600 mg tablet Take 1 tablet by mouth every 8 hours as needed for pain. omeprazole (PRILOSEC) 20 mg capsule Take 1 capsule by mouth once daily. famotidine (PEPCID) 20 mg tablet Take 1 tablet by mouth at bedtime as needed. (Patient not taking: Reported on 05/14/2023) semaglutide (OZEMPIC) 0.25 mg or 0.5 mg(2 mg/1.5 mL) pen Inject 0.5 mg subcutaneously one time a week. (Patient not taking: Reported on 05/14/2023) vitamin D3-vitamin K2, MK4, (K2 PLUS D3) 1,000-100 unit-mcg tab Take as directed OTC NUTRITIONAL SUPPLEMENT Calcium 1000 mg + Magnesium 500 mg + Zinc 25 mg take 4 capsules daily Current Facility-Administered Medications Medication Dose Route Frequency perflutren lipid microspheres 1.3 mL in NaCl (PF) 0.9% 10 mL injection (DEFINITY) INTRAVENOUS DIRECTED PRN sodium chloride 0.9 % (flush) 10 mL (BD POSIFLUSH) 10 mL INTRAVENOUS DIRECTED PRN Allergies: Patient has no known allergies. ROS: General: negative for fatigue, malaise, weight loss/gain Musculoskeletal: see HPI Psych: no depression, anxiety OBJECTIVE: Ms. Janet Montesinos is a pleasant 53 year old in no apparent distress. Gen:LMP 08/07/2010 nl development, obese, no deformities ENT: Normocephalic, normal hearing, moist mucosa CV: Pulses:DP/PT= 2+ and symmetric, capillary refill < 2 secs, no peripheral edema/varicosities Skin: no rash, bruising or lesions. Good turgor. Psych: cooperative and appropriate, alert and oriented x 3, good mood and affect. Musculoskeletal: Left knee, bilateral hips and ankles FROM without pain or limitation. RT Knee: Alignment: Varus deformity, Correctable Active Extension 0 and Active Flexion 110 Tender to the palpation of Lateral joint line Pain with patellar compression: No Stability: Anterior/Posterior stable and Varus/Valgus stable Patellofemoral crepitus: No Quad Atrophy: No IMAGIN07/20/2023 2:50 PM - Radiology, Oru In Impression IMPRESSION: SUBCHONDRAL LATERAL FEMORAL CONDYLE BONE MARROW EDEMA CONSISTENT WITH STRESS CHANGES/DEVELOPING SUBCHONDRAL INSUFFICIENCY FRACTURE. DEGENERATIVE CHONDRAL CHANGES IN THE LATERAL AND PATELLOFEMORAL COMPARTMENTS. Dressed Poultry Grader: KRISTY Transcribe Date/Time: Jul 20 2023 2:27P Dictated by : TIGRE GARCIA MD This examination was interpreted and the report reviewed and electronically signed by: TIGRE GARCIA MD on Jul 20 2023 2:48PM EST Results-Findings * * *Final Report* * * DATE OF EXAM: Jul 20 2023 9:32AM [facility] [id number] - MRI KNEE WO KERI RT / PROCEDURE REASON: Acute pain of right knee * * * * Physician Interpretation * * * * EXAMINATION: MRI RIGHT KNEE WITHOUT CONTRAST CLINICAL HISTORY: Acute pain of right knee TECHNIQUE: Routine non-contrast MRI of the knee MQ: [id number] COMPARISON: MRI dated 06/13/2021 RESULT: MENISCI: Medial Meniscus: Intact. Lateral Meniscus: Intact. LIGAMENTS: ACL: Intact PCL: Intact MCL: Intact LCL Complex: Intact CARTILAGE: Medial Femoral Condyle: Normal Medial Tibial Plateau: Normal Lateral Femoral Condyle: Moderate sized area(s) of low grade (less than 50% thickness) partial thickness cartilage loss and or fissuring Lateral Tibial Plateau: Moderate sized area(s) of predominantly low grade (less than 50% thickness) cartilage loss and or fissuring with smaller area(s) of high grade (greater than 50% thickness) cartilage loss and or fissuring Patella: Moderate sized area(s) of predominantly low grade (less than 50% thickness) cartilage loss and or fissuring with smaller area(s) of full thickness cartilage loss and or fissuring Trochlea: Moderate sized area(s) of predominantly low grade (less than 50% thickness) cartilage loss and or fissuring with smaller area(s) of full thickness cartilage loss and or fissuring TENDONS: The distal quadriceps and patellar tendons are intact. The popliteus tendon is intact. BONES AND MARROW: Subchondral lateral femoral condyle marrow edema, centered at the weightbearing area. Small enchondroma in the proximal fibular metaphysis. MUSCLES: Muscle bulk and signal intensity are normal. JOINT FLUID AND SYNOVIUM: Small joint effusion. No synovitis. No Torres's cyst. OTHER: No other significant abnormality identified. Localizer images: No additional findings. ASSESSMENT: M84.451A Insufficiency fracture of femur, right, initial encounter ([facility]) (primary encounter diagnosis) M25.561 Acute pain of right knee PLAN: Reviewed recent MRI results. Recommendation for lateral insufficiency fracture is right knee lateral sparring dry heat cabinet attendant brace. Additionally recommend patient be NWB for the next 6 weeks until her appointment. Patient agreeable with plan and will follow up in 6 weeks. FOLLOW UP INSTRUCTIONS: 6 weeks Kathi Moon PA-C documented in this encounter [facility] 07-30-2023 Note HNO ID: [id number] Author: Lorenzo Bird AT Service: ? Author Type: Switch Adjuster Type: Progress Notes Filed: 08/06/2023 10:23 AM Note Text: [facility] DME ISSUE NOTE Patient identified by name and date: Yes Subjective: Janet Montesinos is a 53 year old female seen today for fitting, instruction and use of OA brace. Home Environment/Social History: multi-level home stairs with handrail Equipment Owned: [employer] Delivery: Brace: The patient was provided with OA polly, right lateral dry heat cabinet attendant, size Large, and instructed/educated in its application, wear, and care. Education Audience: Patient Learning preferences: Explanation and Demonstration Barriers: No barriers Learning/educational needs: Brace Fit Method of education: Explanation, Demonstration, and Printed Materials Response: Applied knowledge and Demonstrated skill Planned Interventions: Follow up as needed for brace fitting/issues. Billing:[facility]: Equipment: [id number] OA brace No charge for time. Total time: 35 minutes OSWALD Marie Patient care delivered with supervision in accordance with treatment plan. Tomasz Maddox PT, DPT, ATC [facility] 07-30-2023 History of Presen t illness Narrative [facility] DME ISSUE NOTE Patient identified by name and date: Yes Subjective: Janet Montesinos is a 53 year old female seen today for fitting, instruction and use of OA brace. Home Environment/Social History: multi-level home stairs with handrail Equipment Owned: [employer] D[employer] Delivery: Brace: The patient was provided with OA polly, right lateral dry heat cabinet attendant, size Large, and instructed/educated in its application, wear, and care. Education Audience: Patient Learning preferences: Explanation and Demonstration Barriers: No barriers Learning/educational needs: Brace Fit Method of education: Explanation, Demonstration, and Printed Materials Response: Applied knowledge and Demonstrated skill Planned Interventions: Follow up as needed for brace fitting/issues. Billing:[facility]: Equipment: [id number] OA brace No charge for time. Total time: 35 minutes OSWALD Marie documented in this encounter [facility] 07-20-2023 Note HNO ID: [id number] Author: Fina Regalado RT(R) Service: ? Author Type: Technologist Type: Progress Notes Filed: 07/20/2023 9:10 AM Note Text: Radiology Service Progress Note PATIENT NAME: Janet Montesinos DATE OF SERVICE: July 20, 2023 TIME: 9:10 AM PATIENT IDENTITY VERIFICATION COMPLETED USING TWO (2) IDENTIFIERS: Name and Date of confirmed by patient verbally. FALL SCREENING: Has the patient had 2 falls in the last year or 1 fall with injury or currently using an Ambulatory Assistive Device (Walker, Cane, Wheelchair, Crutches, etc.)? No PATIENT GENDER DATA: Female. status: : No status: NO. PATIENT RELEVANT IMPLANT DATA REVIEWED: Yes RADIOLOGY DEPARTMENT: MR; Exam(s) Completed: Lower MSK: Knee, right PERIPHERAL IV DATA: Not applicable SIGNED BY: RT Krystle(R) July 20, 2023 9:10 AM [facility] 07-20-2023 History of Presen t illness Narrative Radiology Service Progress Note PATIENT NAME: Janet Montesinos DATE OF SERVICE: July 20, 2023 TIME: 9:10 AM PATIENT IDENTITY VERIFICATION COMPLETED USING TWO (2) IDENTIFIERS: Name and Date of confirmed by patient verbally. FALL SCREENING: Has the patient had 2 falls in the last year or 1 fall with injury or currently using an Ambulatory Assistive Device (Walker, Cane, Wheelchair, Crutches, etc.)? No PATIENT GENDER DATA: Female. status: : No status: NO. PATIENT RELEVANT IMPLANT DATA REVIEWED: Yes RADIOLOGY DEPARTMENT: MR; Exam(s) Completed: Lower MSK: Knee, right PERIPHERAL IV DATA: Not applicable SIGNED BY: RT Krystle(R) July 20, 2023 9:10 AM documented in this encounter [facility] 07-14-2023 Note HNO ID: [id number] Author: Kathi Moon PA-C Service: ? Author Type: Physician Agriculture Professor Type: Progress Notes Filed: 07/14/2023 1:45 PM Note Text: Kathi Moon PA-C Department of Orthopaedics Orthopaedics [address] [place] [id number] Dept: [phone] Dept July 14, 2023 SUBJECTIVE: CHIEF COMPLAINT: New and Knee Pain of the Right Knee HPI: Ms. Janet Montesinos is a 53 year old female. She presents today with right knee pain that has been present for the past 2 months. She was sen at [facility] on 05/14/2023 where images were obtained. Today she rats her pain a 3 on a scale of 0 to 10 at rest. She describes the pain as dull/achy at rest and sharp with activity. The pain increases to a 5/10 with activity, especially navigating stairs or twisting. She was taking ibuprofen but has not needed to take any since receiving a cortisone injection in June prior to her vacation. She denies any recent injury, numbness/tingling, weakness, locking/catching, giving out or previous knee surgeries. Of note, she had a stress fracture in her medial femoral condyle in 2020 and has HEP from then that she has been participating in. Past Medical History: PAST MEDICAL HISTORY Diagnosis Date Abdominal pain Depression resolved Dysmenorrhea 03/20/2010 GERD (gastroesophageal reflux disease) 08/2019 Hiatal hernia IC (interstitial cystitis) Menorrhagia 03/20/2010 Urgency of urination Past Surgical History: PAST SURGICAL HISTORY Procedure Laterality Date ABDOMINAL SURGERY HX BLADDER SURGERY HX bladder stretch COLONOSCOPY FLX DX W/COLLJ SPEC WHEN PFRMD 10/17/2021 HYSTERECTOMY 2012 HYSTEROSCOPY BI TUBE OCCLUSION W/PERM IMPLNTS 08/13/2010 ESSURE PROCEDURE performed by MELISSA LAU at OR HYSTEROSCOPY ENDOMETRIAL ABLATION 08/13/2010 HYSTEROSCOPY, ABLATION ENDOMETRIAL NOVASURE performed by MELISSA LAU at [facility] SKIN BIOPSY HX VAGINAL HYSTERECTOMY Family History: FAMILY HISTORY Problem Relation Age of Onset Blood Disease Mother Blood Clots other (Migraines) Mother Hypertension Father Prostate Cancer Maternal Grandfather Heart Other Heart Issues on Paternal side of family Blood Clots Maternal Grandmother Colon Cancer No Family History Social History: Social History Tobacco Use Smoking status: Former Types: Cigarettes Quit date: 2016 Years since quittin.6 Smokeless tobacco: Never Tobacco comments: Used to smoke 1 pack every 3-4 days Vaping Use Vaping Use: Never used Substance Use Topics Alcohol use: Yes Alcohol/week: 5.0 standard drinks of alcohol Types: 2 Cans of Beer (12oz) per week Comment: occassionally Drug use: Yes Types: Marijuana Comment: Medical Marijuana -- for pain PRN; less than weekly Medications: Current Outpatient Medications Medication Sig ibuprofen (MOTRIN) 600 mg tablet Take 1 tablet by mouth every 8 hours as needed for pain. omeprazole (PRILOSEC) 20 mg capsule Take 1 capsule by mouth once daily. famotidine (PEPCID) 20 mg tablet Take 1 tablet by mouth at bedtime as needed. (Patient not taking: Reported on 05/14/2023) semaglutide (OZEMPIC) 0.25 mg or 0.5 mg(2 mg/1.5 mL) pen Inject 0.5 mg subcutaneously one time a week. (Patient not taking: Reported on 05/14/2023) vitamin D3-vitamin K2, MK4, (K2 PLUS D3) 1,000-100 unit-mcg tab Take as directed OTC NUTRITIONAL SUPPLEMENT Calcium 1000 mg + Magnesium 500 mg + Zinc 25 mg take 4 capsules daily Current Facility-Administered Medications Medication Dose Route Frequency perflutren lipid microspheres 1.3 mL in NaCl (PF) 0.9% 10 mL injection (DEFINITY) INTRAVENOUS DIRECTED PRN sodium chloride 0.9 % (flush) 10 mL (BD POSIFLUSH) 10 mL INTRAVENOUS DIRECTED PRN Allergies: Patient has no known allergies. ROS: General: negative for fatigue, malaise, weight loss/gain Musculoskeletal: see HPI Psych: no depression, anxiety OBJECTIVE: Ms. Janet Montesinos is a pleasant 53 year old in no apparent distress. Gen:Ht 5' 6 (1.68m) Wt 206 lb (93.4kg) LMP 08/07/2010 BMI 33.27 kg/(m2). nl development, obese, no deformities ENT: Normocephalic, normal hearing, moist mucosa CV: Pulses:DP/PT= 2+ and symmetric, capillary refill < 2 secs, no peripheral edema/varicosities Skin: no rash, bruising or lesions. Good turgor. Psych: cooperative and appropriate, alert and oriented x 3, good mood and affect. Musculoskeletal: Left knee, bilateral hips and ankles FROM without pain or limitation. RT Knee: Alignment: Varus deformity, Correctable Active Extension 0 and Active Flexion 110 Extension lag: No Pain with ROM: Yes Effusion: Slight Erythema: No Ecchymosis: No Tender to the palpation of Lateral joint line Pain with patellar compression: No Stability: Anterior/Posterior stable and Varus/Valgus stable Patellofemoral crepitus: No Quad Atrophy: No Margret's: Negative Anterior arthur (more content not included)... [facility] 07-14-2023 History of Presen t illness Narrative Kathi Moon PA-C Department of Orthopaedics Orthopaedics [address] [place], [place] [id number] Dept: [phone] Dept July 14, 2023 SUBJECTIVE: CHIEF COMPLAINT: New and Knee Pain of the Right Knee HPI: Ms. Janet Montesinos is a 53 year old female. She presents today with right knee pain that has been present for the past 2 months. She was sen at [facility] on 05/14/2023 where images were obtained. Today she rats her pain a 3 on a scale of 0 to 10 at rest. She describes the pain as dull/achy at rest and sharp with activity. The pain increases to a 5/10 with activity, especially navigating stairs or twisting. She was taking ibuprofen but has not needed to take any since receiving a cortisone injection in June prior to her vacation. She denies any recent injury, numbness/tingling, weakness, locking/catching, giving out or previous knee surgeries. Of note, she had a stress fracture in her medial femoral condyle in 2020 and has HEP from then that she has been participating in. Past Medical History: PAST MEDICAL HISTORY Diagnosis Date Abdominal pain Depression resolved Dysmenorrhea 03/20/2010 GERD (gastroesophageal reflux disease) 08/2019 Hiatal hernia IC (interstitial cystitis) Menorrhagia 03/20/2010 Urgency of urination Past Surgical History: PAST SURGICAL HISTORY Procedure Laterality Date ABDOMINAL SURGERY HX BLADDER SURGERY HX bladder stretch COLONOSCOPY FLX DX W/COLLJ SPEC WHEN PFRMD 10/17/2021 HYSTERECTOMY 2011 HYSTEROSCOPY BI TUBE OCCLUSION W/PERM IMPLNTS 08/13/2010 ESSURE PROCEDURE performed by MELISSA LAU at OR HYSTEROSCOPY ENDOMETRIAL ABLATION 08/13/2010 HYSTEROSCOPY, ABLATION ENDOMETRIAL NOVASURE performed by MELISSA LAU at OR SKIN BIOPSY HX VAGINAL HYSTERECTOMY Family History: FAMILY HISTORY Problem Relation Age of Onset Blood Disease Mother Blood Clots other (Migraines) Mother Hypertension Father Prostate Cancer Maternal Grandfather Heart Other Heart Issues on Paternal side of family Blood Clots Maternal Grandmother Colon Cancer No Family History Social History: Social History Tobacco Use Smoking status: Former Types: Cigarettes Quit date: 2016 Years since quittin.6 Smokeless tobacco: Never Tobacco comments: Used to smoke 1 pack every 3-4 days Vaping Use Vaping Use: Never used Substance Use Topics Alcohol use: Yes Alcohol/week: 5.0 standard drinks of alcohol Types: 2 Cans of Beer (12oz) per week Comment: occassionally Drug use: Yes Types: Marijuana Comment: Medical Marijuana -- for pain PRN; less than weekly Medications: Current Outpatient Medications Medication Sig ibuprofen (MOTRIN) 600 mg tablet Take 1 tablet by mouth every 8 hours as needed for pain. omeprazole (PRILOSEC) 20 mg capsule Take 1 capsule by mouth once daily. famotidine (PEPCID) 20 mg tablet Take 1 tablet by mouth at bedtime as needed. (Patient not taking: Reported on 05/14/2023) semaglutide (OZEMPIC) 0.25 mg or 0.5 mg(2 mg/1.5 mL) pen Inject 0.5 mg subcutaneously one time a week. (Patient not taking: Reported on 05/14/2023) vitamin D3-vitamin K2, MK4, (K2 PLUS D3) 1,000-100 unit-mcg tab Take as directed OTC NUTRITIONAL SUPPLEMENT Calcium 1000 mg + Magnesium 500 mg + Zinc 25 mg take 4 capsules daily Current Facility-Administered Medications Medication Dose Route Frequency perflutren lipid microspheres 1.3 mL in NaCl (PF) 0.9% 10 mL injection (DEFINITY) INTRAVENOUS DIRECTED PRN sodium chloride 0.9 % (flush) 10 mL (BD POSIFLUSH) 10 mL INTRAVENOUS DIRECTED PRN Allergies: Patient has no known allergies. ROS: General: negative for fatigue, malaise, weight loss/gain Musculoskeletal: see HPI Psych: no depression, anxiety OBJECTIVE: Ms. Janet Montesinos is a pleasant 53 year old in no apparent distress. Gen:Ht 5' 6 (1.68m) Wt 206 lb (93.4kg) LMP 08/07/2010 BMI 33.27 kg/(m^2). nl development, obese, no deformities ENT: Normocephalic, normal hearing, moist mucosa CV: Pulses:DP/PT= 2+ and symmetric, capillary refill < 2 secs, no peripheral edema/varicosities Skin: no rash, bruising or lesions. Good turgor. Psych: cooperative and appropriate, alert and oriented x 3, good mood and affect. Musculoskeletal: Left knee, bilateral hips and ankles FROM without pain or limitation. 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: KRISTY Transcribe Date/Time: May 14 2023 12:49P Dictated by : NEREIDA NIETO MD This examination was interpreted and the report reviewed and electronically signed by: NEREIDA NIETO MD on May 14 2023 12:51PM EST Results-Findings * * *Final Report* * * DATE OF EXAM: May 14 2023 12:40PM WOX [id number] - XR KNEE 4V AP/PA BOTH+LAT/LUIS MANUEL RT / PROCEDURE REASON: Acute pain of right knee * * * * Physician Interpretation * * * * Examination: XR KNEE 4V AP/PA BOTH+LAT/LUIS MANUEL RT History: Acute pain of right knee Technique: XR KNEE 4V AP/PA BOTH+LAT/LUIS MANUEL RT Comparison: 08/21/2021 RESULT: No fracture or focal bony abnormality. Normal mineralization and alignment. No evidence of suprapatellar effusion ASSESSMENT: M25.561 Acute pain of right knee PLAN: Reviewed images taken previously. Discussed treatment options for acute knee pain including physical therapy and advanced imaging. As patient has been participating I an [facility] an MRI was agreed upon and ordered today. She will follow up after MRI. FOLLOW UP INSTRUCTIONS: After MRI Kathi Moon PA-C documented in this encounter [facility] 06-07-2023 Note HNO ID: [id number] Author: Dona Cochran APRN.[employer] Service: ? Author Type: Nurse Practitioner Type: Progress Notes Filed: 06/07/2023 4:46 PM Note Text: CC: Patient presents with: Recheck: Follow up, knee HPI Janet Montesinos is a 52 year old female who presents today for ongoing right knee pain. Was seen in urgent care for this a few weeks ago. Was put on steroid taper for a week which did not help, had a knee xray which was normal, using ibuprofen, and a knee brace. Ibuprofen would fully relieve her pain but was scared to take more than 1 a day. Had hurt this knee 2 years ago with injury resulting in sprained mcl, a subarticular stress fracture and received physical therapy. This knee pain started abruptly a month ago. Woke up on the 11 of May with pain to right knee without any known cause. Currently describes pain as an ache which occurs when bearing weight on RLE. Denies any injury, stumbling, change in activity, redness, fever, weakness, instability, numbness or decrease in sensation. Patient feels knee is swollen slightly. Has a vacation coming up in 2 weeks and hoping to have some improvement to be able to do sightseeing and walking in [place]. REVIEW OF SYSTEMS General: no fevers, no chills, no night sweats, no recurrent infections, no change in appetite, no change in energy, and no significant changes in weight Respiratory: no cough, no wheezing, no shortness of breath, no hemoptysis Cardiovascular: no chest pain, no chest pressure, no palpitations, and no swelling PAST MEDICAL HISTORY Diagnosis Date Abdominal pain Depression resolved Dysmenorrhea 03/20/2010 GERD (gastroesophageal reflux disease) 08/2019 Hiatal hernia IC (interstitial cystitis) Menorrhagia 03/20/2010 Urgency of urination PAST SURGICAL HISTORY Procedure Laterality Date ABDOMINAL SURGERY HX BLADDER SURGERY HX bladder stretch COLONOSCOPY FLX DX W/COLLJ SPEC WHEN PFRMD 10/17/2021 HYSTERECTOMY 2012 HYSTEROSCOPY BI TUBE OCCLUSION W/PERM IMPLNTS 08/13/2010 ESSURE PROCEDURE performed by MELISSA LAU at OR HYSTEROSCOPY ENDOMETRIAL ABLATION 08/13/2010 HYSTEROSCOPY, ABLATION ENDOMETRIAL NOVASURE performed by MELISSA LAU at OR SKIN BIOPSY HX VAGINAL HYSTERECTOMY ALLERGIES Patient has no known allergies. MEDICATIONS omeprazole (PRILOSEC) 20 mg capsuleTake 1 capsule by mouth once daily.Disp: 90 capsuleRfl: 3 famotidine (PEPCID) 20 mg tabletTake 1 tablet by mouth at bedtime as needed.Disp: 30 tabletRfl: 1 (Patient not taking: Reported on 05/14/2023) semaglutide (OZEMPIC) 0.25 mg or 0.5 mg(2 mg/1.5 mL) penInject 0.5 mg subcutaneously one time a week.Disp: 2 EachRfl: 5 (Patient not taking: Reported on 05/14/2023) vitamin D3-vitamin K2, MK4, (K2 PLUS D3) 1,000-100 unit-mcg tabTake as directedDisp: Rfl: OTC NUTRITIONAL SUPPLEMENTCalcium 1000 mg + Magnesium 500 mg + Zinc 25 mg take 4 capsules dailyDisp: Rfl: FAMILY HISTORY Problem Relation Age of Onset Blood Disease Mother Blood Clots other (Migraines) Mother Hypertension Father Prostate Cancer Maternal Grandfather Heart Other Heart Issues on Paternal side of family Blood Clots Maternal Grandmother Colon Cancer No Family History Social History Tobacco Use Smoking status: Former Types: Cigarettes Quit date: 2016 Years since quittin.5 Smokeless tobacco: Never Tobacco comments: Used to smoke 1 pack every 3-4 days Vaping Use Vaping Use: Never used Substance Use Topics Alcohol use: Yes Alcohol/week: 5.0 standard drinks of alcohol Types: 2 Cans of Beer (12oz) per week Comment: occassionally Drug use: Yes Types: Marijuana Comment: Medical Marijuana -- for pain PRN; less than weekly PHYSICAL EXAM BP 128/70 Pulse 76 Resp 16 Wt 93 kg (205 lb) LMP 08/07/2010 BMI 33.09 kg/m? General Appearance: well appearing, in no acute distress, alert Skin: Skin color, texture, turgor normal for age; Eyes: conjunctiva pink and moist, no icterus, sclera white, non-injected BLE Extremities: No deformities, edema, skin discoloration, clubbing or cyanosis. Good capillary refill. Pulses palpable Musculoskeletal: Bilateral knee- normal to inspection. Tenderness:none reported. Flexion:Limitation: No, Pain:No; Extension:Limitation:No, Pain:No. Laxity: No Muscle strength- 5/5 lower, bilaterally Gait abnormal with favoring right side and taking small steps. Health maintenance reviewed with patient: HEPATITIS B(1 of 3 - 3-dose series) Never done HEPATITIS C SCREENING Never done HIV SCREENING Never done DTAP,TDAP,TD(1 - Tdap) Never done COVID-19 VACCINE(3 - Pfizer series) due on 11/13/2021 SHINGRIX VACCINE(1 of 2) Never done DEPRESSION ASSESSMENT Never done INFLUENZA(1) due on 07/09/2023 MAMMOGRAM due on 09/29/2023 DIABETES SCREEN due on 08/03/2025 LIPID SCREEN due on 05/05/2027 COLORECTAL CANCER SCREENING due on 10/17/2031 PAP TESTING Discontinued HPV TESTIN (more content not included)... [facility] 06-07-2023 History of Presen t illness Narrative CC: Patient presents with: Recheck: Follow up, knee HPI Janet Montesinos is a 52 year old female who presents today for ongoing right knee pain. Was seen in urgent care for this a few weeks ago. Was put on steroid taper for a week which did not help, had a knee xray which was normal, using ibuprofen, and a knee brace. Ibuprofen would fully relieve her pain but was scared to take more than 1 a day. Had hurt this knee 2 years ago with injury resulting in sprained mcl, a subarticular stress fracture and received physical therapy. This knee pain started abruptly a month ago. Woke up on the 11 of May with pain to right knee without any known cause. Currently describes pain as an ache which occurs when bearing weight on RLE. Denies any injury, stumbling, change in activity, redness, fever, weakness, instability, numbness or decrease in sensation. Patient feels knee is swollen slightly. Has a vacation coming up in 2 weeks and hoping to have some improvement to be able to do sightseeing and walking in [place]. REVIEW OF SYSTEMS General: no fevers, no chills, no night sweats, no recurrent infections, no change in appetite, no change in energy, and no significant changes in weight Respiratory: no cough, no wheezing, no shortness of breath, no hemoptysis Cardiovascular: no chest pain, no chest pressure, no palpitations, and no swelling PAST MEDICAL HISTORY Diagnosis Date Abdominal pain Depression resolved Dysmenorrhea 03/20/2010 GERD (gastroesophageal reflux disease) 08/2019 Hiatal hernia IC (interstitial cystitis) Menorrhagia 03/20/2010 Urgency of urination PAST SURGICAL HISTORY Procedure Laterality Date ABDOMINAL SURGERY HX BLADDER SURGERY HX bladder stretch COLONOSCOPY FLX DX W/COLLJ SPEC WHEN PFRMD 10/17/2021 HYSTERECTOMY 2012 HYSTEROSCOPY BI TUBE OCCLUSION W/PERM IMPLNTS 08/13/2010 ESSURE PROCEDURE performed by MELISSA LAU at OR HYSTEROSCOPY ENDOMETRIAL ABLATION 08/13/2010 HYSTEROSCOPY, ABLATION ENDOMETRIAL NOVASURE performed by MELISSA LAU at OR SKIN BIOPSY HX VAGINAL HYSTERECTOMY ALLERGIES Patient has no known allergies. MEDICATIONS omeprazole (PRILOSEC) 20 mg capsule^Take 1 capsule by mouth once daily.^Disp: 90 capsule^Rfl: 3 famotidine (PEPCID) 20 mg tablet^Take 1 tablet by mouth at bedtime as needed.^Disp: 30 tablet^Rfl: 1 (Patient not taking: Reported on 05/14/2023) semaglutide (OZEMPIC) 0.25 mg or 0.5 mg(2 mg/1.5 mL) pen^Inject 0.5 mg subcutaneously one time a week.^Disp: 2 Each^Rfl: 5 (Patient not taking: Reported on 05/14/2023) vitamin D3-vitamin K2, MK4, (K2 PLUS D3) 1,000-100 unit-mcg tab^Take as directed^Disp: ^Rfl: OTC NUTRITIONAL SUPPLEMENT^Calcium 1000 mg + Magnesium 500 mg + Zinc 25 mg take 4 capsules daily^Disp: ^Rfl: FAMILY HISTORY Problem Relation Age of Onset Blood Disease Mother Blood Clots other (Migraines) Mother Hypertension Father Prostate Cancer Maternal Grandfather Heart Other Heart Issues on Paternal side of family Blood Clots Maternal Grandmother Colon Cancer No Family History Social History Tobacco Use Smoking status: Former Types: Cigarettes Quit date: 2016 Years since quittin.5 Smokeless tobacco: Never Tobacco comments: Used to smoke 1 pack every 3-4 days Vaping Use Vaping Use: Never used Substance Use Topics Alcohol use: Yes Alcohol/week: 5.0 standard drinks of alcohol Types: 2 Cans of Beer (12oz) per week Comment: occassionally Drug use: Yes Types: Marijuana Comment: Medical Marijuana -- for pain PRN; less than weekly PHYSICAL EXAM BP 128/70 Pulse 76 Resp 16 Wt 93 kg (205 lb) LMP 08/07/2010 BMI 33.09 kg/m General Appearance: well appearing, in no acute distress, alert Skin: Skin color, texture, turgor normal for age; Eyes: conjunctiva pink and moist, no icterus, sclera white, non-injected BLE Extremities: No deformities, edema, skin discoloration, clubbing or cyanosis. Good capillary refill. Pulses palpable Musculoskeletal: Bilateral knee- normal to inspection. Tenderness:none reported. Flexion:Limitation: No, Pain:No; Extension:Limitation:No, Pain:No. Laxity: No Muscle strength- 5/5 lower, bilaterally Gait abnormal with favoring right side and taking small steps. Health maintenance reviewed with patient: HEPATITIS B(1 of 3 - 3-dose series) Never done HEPATITIS C SCREENING Never done HIV SCREENING Never done DTAP,TDAP,TD(1 - Tdap) Never done COVID-19 VACCINE(3 - Pfizer series) due on 11/13/2021 SHINGRIX VACCINE(1 of 2) Never done DEPRESSION ASSESSMENT Never done INFLUENZA(1) due on 07/09/2023 MAMMOGRAM due on 09/29/2023 DIABETES SCREEN due on 08/03/2025 LIPID SCREEN due on 05/05/2027 COLORECTAL CANCER SCREENING due on 10/17/2031 PAP TESTING Discontinued HPV TESTING Discontinued ASSESSMENT/PLAN: 1. Acute pain of right knee - ICD9: 719.46, ICD10: M25.561 (primary diagnosis) - probable inflammation - assessment normal - taking ibuprofen as ordered. Take regularly for 3-5 days then as needed. - continue with brace as needed, gentle stretching, rest, and ice. - CONSULT TO ORTHOPAEDICS 2. Annual physical exam - ICD9: V70.0, ICD10: Z00.00 - not reviewed today, labs ordered to be reviewed at upcoming annual appointment. - LIPID PANEL BASIC - COMP METABOLIC PANEL - CBC + DIFF Prescription instructions reviewed with patient as applicable. Potential red flag symptoms discussed with the patient. Reviewed appropriate action plan to take if red flag symptoms occur. Patient agreeable to treatment plan. Dona Cochran APRN.CNP documented in this encounter [facility] 05-14-2023 Note HNO ID: [id number] Author: RT Loc(R) Service: Radiology Author Type: Technologist Type: Progress Notes Filed: 05/14/2023 12:41 PM Note Text: Radiology Service Progress Note PATIENT NAME: Janet Montesinos DATE OF SERVICE: May 14, 2023 TIME: 12:31 PM PATIENT IDENTITY VERIFICATION COMPLETED USING TWO (2) IDENTIFIERS: Name and Date of confirmed by patient verbally. FALL SCREENING: Has the patient had 2 falls in the last year or 1 fall with injury or currently using an Ambulatory Assistive Device (Walker, Cane, Wheelchair, Crutches, etc.)? No PATIENT GENDER DATA: Female. status: : No status: NO. PATIENT RELEVANT IMPLANT DATA REVIEWED: Yes RADIOLOGY DEPARTMENT: General X-ray: Exam(s) Completed: Lower Extremity X-Ray(s): Knee, AP / Lat / Tunne / Merchant Right and Wt. Bearing PERIPHERAL IV DATA: Not applicable SIGNED BY: RT Loc(R) May 14, 2023 12:31 PM [facility] 05-14-2023 Note HNO ID: [id number] Author: Yoselin Sandhu APRN.CNP Service: ? Author Type: Nurse Practitioner Type: Progress Notes Filed: 05/14/2023 1:16 PM Note Text: Subjective HPI HPI Janet Montesinos is a 52 year old female who presents today for CC of right knee pain. This started 3 days ago. Has tried otc medication for relief. Symptoms are worsened by rom. Risk factors hx of fracture to right knee without injury in past. Denies history of surgery or injury to right knee. Denies numbness and tingling of right leg. .Patient presents with: Pain: Pt reported (RT) knee pain x3 day, Hx surgery, denied fall. PAST MEDICAL HISTORY Diagnosis Date Abdominal pain Depression resolved Dysmenorrhea 03/20/2010 GERD (gastroesophageal reflux disease) 08/2019 Hiatal hernia IC (interstitial cystitis) Menorrhagia 03/20/2010 Urgency of urination PAST SURGICAL HISTORY Procedure Laterality Date ABDOMINAL SURGERY HX BLADDER SURGERY HX bladder stretch COLONOSCOPY FLX DX W/COLLJ SPEC WHEN PFRMD 10/17/2021 HYSTERECTOMY 2011 HYSTEROSCOPY BI TUBE OCCLUSION W/PERM IMPLNTS 08/13/2010 ESSURE PROCEDURE performed by MELISSA LAU at OR HYSTEROSCOPY ENDOMETRIAL ABLATION 08/13/2010 HYSTEROSCOPY, ABLATION ENDOMETRIAL NOVASURE performed by MELISSA LAU at OR SKIN BIOPSY HX VAGINAL HYSTERECTOMY ALLERGIES Patient has no known allergies. MEDICATIONS omeprazole (PRILOSEC) 20 mg capsuleTake 1 capsule by mouth once daily.Disp: 90 capsuleRfl: 3 vitamin D3-vitamin K2, MK4, (K2 PLUS D3) 1,000-100 unit-mcg tabTake as directedDisp: Rfl: famotidine (PEPCID) 20 mg tabletTake 1 tablet by mouth at bedtime as needed.Disp: 30 tabletRfl: 1 (Patient not taking: Reported on 05/14/2023) semaglutide (OZEMPIC) 0.25 mg or 0.5 mg(2 mg/1.5 mL) penInject 0.5 mg subcutaneously one time a week.Disp: 2 EachRfl: 5 (Patient not taking: Reported on 05/14/2023) OTC NUTRITIONAL SUPPLEMENTCalcium 1000 mg + Magnesium 500 mg + Zinc 25 mg take 4 capsules dailyDisp: Rfl: FAMILY HISTORY Problem Relation Age of Onset Blood Disease Mother Blood Clots other (Migraines) Mother Hypertension Father Prostate Cancer Maternal Grandfather Heart Other Heart Issues on Paternal side of family Blood Clots Maternal Grandmother Colon Cancer No Family History Social History Tobacco Use Smoking status: Former Types: Cigarettes Quit date: 2016 Years since quittin.5 Smokeless tobacco: Never Tobacco comments: Used to smoke 1 pack every 3-4 days Vaping Use Vaping Use: Never used Substance Use Topics Alcohol use: Yes Alcohol/week: 5.0 standard drinks Types: 2 Cans of Beer (12oz) per week Comment: occassionally Drug use: Yes Types: Marijuana Comment: Medical Marijuana -- for pain PRN; less than weekly ROS Objective Blood pressure 132/74, pulse 82, temperature 36.6 ?C (97.9 ?F), temperature source Temporal, resp. rate 18, weight 92.3 kg (203 lb 6.4 oz), last menstrual period 08/07/2010, SpO2 98 %. Physical Exam Constitutional: General: She is not in acute distress. Appearance: She is not toxic-appearing or diaphoretic. HENT: Head: Normocephalic and atraumatic. Pulmonary: Effort: Pulmonary effort is normal. No accessory muscle usage or respiratory distress. Musculoskeletal: Right upper leg: Normal. Right knee: No swelling, deformity, effusion, erythema, ecchymosis or lacerations. Decreased range of motion. Tenderness present over the lateral joint line. Right lower leg: Normal. Neurological: Mental Status: She is alert and oriented to person, place, and time. ASSESSMENT/PLAN: 1. Acute pain of right knee - ICD9: 719.46, ICD10: M25.561 -no bony abnormality noted on xray -given stretches/exercises -Rest, Ice, Compression, Elevation discussed -follow up with primary care if symptoms persist/worsen in 10-14 days - XR KNEE GENERAL 4V AP BOTH/PA BOTH/LAT/MERC RIGHT IMPRESSION: NORMAL APPEARANCE OF THE RIGHT KNEE Dictated by : NEREIDA NIETO MD - PREDNISONE 10 MG TABLET Yoselin Sandhu APRN.[employer] [facility] 05-14-2023 History of Presen t illness Narrative Subjective HPI HPI Janet Montesinos is a 52 year old female who presents today for CC of right knee pain. This started 3 days ago. Has tried otc medication for relief. Symptoms are worsened by rom. Risk factors hx of fracture to right knee without injury in past. Denies history of surgery or injury to right knee. Denies numbness and tingling of right leg. .Patient presents with: Pain: Pt reported (RT) knee pain x3 day, Hx surgery, denied fall. PAST MEDICAL HISTORY Diagnosis Date Abdominal pain Depression resolved Dysmenorrhea 03/20/2010 GERD (gastroesophageal reflux disease) 08/2019 Hiatal hernia IC (interstitial cystitis) Menorrhagia 03/20/2010 Urgency of urination PAST SURGICAL HISTORY Procedure Laterality Date ABDOMINAL SURGERY HX BLADDER SURGERY HX bladder stretch COLONOSCOPY FLX DX W/COLLJ SPEC WHEN PFRMD 10/17/2021 HYSTERECTOMY 2012 HYSTEROSCOPY BI TUBE OCCLUSION W/PERM IMPLNTS 08/13/2010 ESSURE PROCEDURE performed by MELISSA LAU at OR HYSTEROSCOPY ENDOMETRIAL ABLATION 08/13/2010 HYSTEROSCOPY, ABLATION ENDOMETRIAL NOVASURE performed by MELISSA LAU at OR SKIN BIOPSY HX VAGINAL HYSTERECTOMY ALLERGIES Patient has no known allergies. MEDICATIONS omeprazole (PRILOSEC) 20 mg capsule^Take 1 capsule by mouth once daily.^Disp: 90 capsule^Rfl: 3 vitamin D3-vitamin K2, MK4, (K2 PLUS D3) 1,000-100 unit-mcg tab^Take as directed^Disp: ^Rfl: famotidine (PEPCID) 20 mg tablet^Take 1 tablet by mouth at bedtime as needed.^Disp: 30 tablet^Rfl: 1 (Patient not taking: Reported on 05/14/2023) semaglutide (OZEMPIC) 0.25 mg or 0.5 mg(2 mg/1.5 mL) pen^Inject 0.5 mg subcutaneously one time a week.^Disp: 2 Each^Rfl: 5 (Patient not taking: Reported on 05/14/2023) OTC NUTRITIONAL SUPPLEMENT^Calcium 1000 mg + Magnesium 500 mg + Zinc 25 mg take 4 capsules daily^Disp: ^Rfl: FAMILY HISTORY Problem Relation Age of Onset Blood Disease Mother Blood Clots other (Migraines) Mother Hypertension Father Prostate Cancer Maternal Grandfather Heart Other Heart Issues on Paternal side of family Blood Clots Maternal Grandmother Colon Cancer No Family History Social History Tobacco Use Smoking status: Former Types: Cigarettes Quit date: 2016 Years since quittin.5 Smokeless tobacco: Never Tobacco comments: Used to smoke 1 pack every 3-4 days Vaping Use Vaping Use: Never used Substance Use Topics Alcohol use: Yes Alcohol/week: 5.0 standard drinks Types: 2 Cans of Beer (12oz) per week Comment: occassionally Drug use: Yes Types: Marijuana Comment: Medical Marijuana -- for pain PRN; less than weekly ROS Objective Blood pressure 132/74, pulse 82, temperature 36.6 C (97.9 F), temperature source Temporal, resp. rate 18, weight 92.3 kg (203 lb 6.4 oz), last menstrual period 08/07/2010, SpO2 98 %. Physical Exam Constitutional: General: She is not in acute distress. Appearance: She is not toxic-appearing or diaphoretic. HENT: Head: Normocephalic and atraumatic. Pulmonary: Effort: Pulmonary effort is normal. No accessory muscle usage or respiratory distress. Musculoskeletal: Right upper leg: Normal. Right knee: No swelling, deformity, effusion, erythema, ecchymosis or lacerations. Decreased range of motion. Tenderness present over the lateral joint line. Right lower leg: Normal. Neurological: Mental Status: She is alert and oriented to person, place, and time. ASSESSMENT/PLAN: 1. Acute pain of right knee - ICD9: 719.46, ICD10: M25.561 -no bony abnormality noted on xray -given stretches/exercises -Rest, Ice, Compression, Elevation discussed -follow up with primary care if symptoms persist/worsen in 10-14 days - XR KNEE GENERAL 4V AP BOTH/PA BOTH/LAT/MERC RIGHT IMPRESSION: NORMAL APPEARANCE OF THE RIGHT KNEE Dictated by : NEREIDA NIETO MD - PREDNISONE 10 MG TABLET Yoselin Sandhu APRN.[employer] documented in this encounter [facility] 05-04-2023 Miscellaneous Notes SASHA: 09/28/2022 Last refill: 05/05/2022 QTY: 90 Refills: 3 Patient's request for medication is as follows: Requested Prescriptions Pending Prescriptions Disp Refills omeprazole (PRILOSEC) 20 mg capsule 90 capsule 3 Sig: Take 1 capsule by mouth once daily. Please approve the above prescription(s) to electronically send to pharmacy. Dominguez Antony Ma documented in this encounter [facility] 09-30-2022 Miscellaneous Notes Pt notified of results via [employer]. Chioma Pagan Ma Mammogram is most likely benign. We will re image your right breast in 6 months to verify this. Take care Dona Cochran APRN.CNP documented in this encounter [facility] 09-29-2022 History of Presen t illness Narrative Radiology Service Progress Note PATIENT NAME: Janet Montesinos DATE OF SERVICE: September 29, 2022 TIME: 2:10 PM PATIENT IDENTITY VERIFICATION COMPLETED USING TWO (2) IDENTIFIERS: Name and Date of confirmed by patient verbally. FALL SCREENING: Has the patient had 2 falls in the last year or 1 fall with injury or currently using an Ambulatory Assistive Device (Walker, Cane, Wheelchair, Crutches, etc.)? No PATIENT GENDER DATA: Female. status: : No status: NO. PATIENT RELEVANT IMPLANT DATA REVIEWED: Not Applicable RADIOLOGY DEPARTMENT: Mammography PERIPHERAL IV DATA: Not applicable SIGNED BY: Guillaume Mendez September 29, 2022 2:10 PM documented in this encounter [facility] 09-28-2022 History of Presen t illness Narrative CC: Patient presents with: Recheck: Follow up HPI Janet Montesinos is a 52 year old female who presents today for chest pain. Symptoms have greatly improved. Has only had the left sided chest pain a few times over the past few weeks. Has not started the pepcid yet but been taking the omeprazole later in the day to help make sure it is controlled at night. Pain to left chest when she does have it is less severe, and dull in nature now only lasting a few seconds. Denies any sweating, shortness of breath, or nausea. Does not occur with activity or eating. Had an EGD previously and [facility]. REVIEW OF SYSTEMS General: no fevers, no chills, no night sweats, no recurrent infections, no change in appetite, no change in energy, and no significant changes in weight Respiratory: no cough, no wheezing, no shortness of breath, no hemoptysis Cardiovascular: no chest pressure, no palpitations, and no swelling GI: No nausea, vomiting, or diarrhea Neurologic: No headache, weakness, numbness, tingling, dizziness, memory loss, syncope. PAST MEDICAL HISTORY Diagnosis Date Abdominal pain Depression resolved Dysmenorrhea 03/20/2010 GERD (gastroesophageal reflux disease) 08/2019 Hiatal hernia IC (interstitial cystitis) Menorrhagia 03/20/2010 Urgency of urination PAST SURGICAL HISTORY Procedure Laterality Date ABDOMINAL SURGERY HX BLADDER SURGERY HX bladder stretch COLONOSCOPY FLX DX W/COLLJ SPEC WHEN PFRMD 10/17/2021 HYSTERECTOMY 2011 HYSTEROSCOPY BI TUBE OCCLUSION W/PERM IMPLNTS 08/13/2010 ESSURE PROCEDURE performed by MELISSA LAU at OR HYSTEROSCOPY ENDOMETRIAL ABLATION 08/13/2010 HYSTEROSCOPY, ABLATION ENDOMETRIAL NOVASURE performed by MELISSA LAU at OR SKIN BIOPSY HX VAGINAL HYSTERECTOMY ALLERGIES Patient has no known allergies. MEDICATIONS famotidine (PEPCID) 20 mg tablet^Take 1 tablet by mouth at bedtime as needed.^Disp: 30 tablet^Rfl: 1 semaglutide (OZEMPIC) 0.25 mg or 0.5 mg(2 mg/1.5 mL) pen^Inject 0.5 mg subcutaneously one time a week.^Disp: 2 Each^Rfl: 5 omeprazole (PRILOSEC) 20 mg capsule^Take 1 capsule by mouth once daily.^Disp: 90 capsule^Rfl: 3 vitamin D3-vitamin K2, MK4, (K2 PLUS D3) 1,000-100 unit-mcg tab^Take as directed^Disp: ^Rfl: OTC NUTRITIONAL SUPPLEMENT^Calcium 1000 mg + Magnesium 500 mg + Zinc 25 mg take 4 capsules daily^Disp: ^Rfl: FAMILY HISTORY Problem Relation Age of Onset Blood Disease Mother Blood Clots other (Migraines) Mother Hypertension Father Prostate Cancer Maternal Grandfather Heart Other Heart Issues on Paternal side of family Blood Clots Maternal Grandmother Colon Cancer No Family History Social History Tobacco Use Smoking status: Former Types: Cigarettes Quit date: 2016 Years since quittin.8 Smokeless tobacco: Never Tobacco comments: Used to smoke 1 pack every 3-4 days Vaping Use Vaping Use: Never used Substance Use Topics Alcohol use: Yes Alcohol/week: 5.0 standard drinks Types: 2 Cans of Beer (12oz) per week Comment: occassionally Drug use: Yes Types: Marijuana Comment: Medical Marijuana -- for pain PRN; less than weekly PHYSICAL EXAM BP 122/68 Pulse 68 Resp 16 Wt 88 kg (194 lb) LMP 08/07/2010 BMI 31.31 kg/m General Appearance: well appearing, in no acute distress, alert Skin: Skin color, texture, turgor normal for age; Eyes: conjunctiva pink and moist, no icterus, sclera white, non-injected Lungs: Lungs clear to auscultation. No wheezing, rhonchi, rales. Heart: RRR without murmur, gallop, or rubs. No ectopy Abdomen: Abdomen soft, non-tender. Bowel sounds normal. No masses, organomegaly Health maintenance reviewed with patient: HEPATITIS B(1 of 3 - 3-dose series) Never done DEPRESSION ASSESSMENT Never done COVID-19 VACCINE(3 - Booster for Pfizer series) due on 11/13/2021 SHINGRIX VACCINE(1 of 2) Never done DTAP,TDAP,TD(1 - Tdap) due on 11/09/2022 HEPATITIS C SCREENING due on 05/05/2023 HIV SCREENING due on 05/05/2023 INFLUENZA(1) due on 05/07/2023 MAMMOGRAM due on 08/26/2023 DIABETES SCREEN due on 08/03/2025 LIPID SCREEN due on 05/05/2027 COLORECTAL CANCER SCREENING due on 10/17/2031 PAP TESTING Discontinued HPV TESTING Discontinued DATA REVIEWED: Most recent labs and imaging results. ASSESSMENT/PLAN: 1. Chest pain, unspecified type - ICD9: 786.50, ICD10: R07.9 (primary diagnosis) - stress and echo normal - probable from Reflux - assessment negative - need to get previous EGD results and will need to most likely see GI again - sending in Pepcid prescription to help continue to improve this especially through the holiday season. 2. Gastroesophageal reflux disease, unspecified whether esophagitis present - ICD9: 530.81, ICD10: K21.9 As above Prescription instructions reviewed with patient as applicable. Potential red flag symptoms discussed with the patient. Reviewed appropriate action plan to take if red flag symptoms occur. Patient agreeable to treatment plan. Dona Cochran APRN.CNP documented in this encounter [facility] 08-28-2022 Miscellaneous Notes Patient notified of Diagnostic Mammogram phone number will call to schedule with them. Gabriela ACOSTA Patient notified, please assist in scheduling. Please let patient know she needs additional views of both breasts to further evaluate asymmetrical areas. Thank you Dona Cochran APRN.CNP documented in this encounter [facility] 08-26-2022 History of Presen t illness Narrative CC: Patient presents with: Recheck: 3 month follow up HPI Janet Montesinos is a 52 year old female who presents today for ER follow-up. Facility: [facility] Date of visit: 08/03/2022 Reason for visit: Patient had been have left sided stabbing chest pains over the past few days but was more severe and constant the day she went to the ER. Pain occurred while sitting and was accompanied with sweating and some shortness of breath. The shortness of breath only occurs with the chest pain. Unsure if it was around eating food but for sure was not with exertion. Had a negative stress test in her 30s. No known family history of heart disease occurring young but only knows her mothers side of family. Mother does have a history of blood clots. Hospital course: negative d-dimer, CXR negative, EKG NSR, troponins negative Diagnosis: chest pain unknown cause. Discharge: home Current symptoms: none Has a history of chest pain with multiple Er visits. States she was told in the past she should have a repeated stress test but has not followed through with that yet. Also has a history of palpitations but currently is asymptomatic. Has a history of GERD and hiatal hernia. Takes omepraozle for this and recently switched med to before bed as she feels this has helped her heartburn to decrease. Denies any abdominal pain, nausea, vomiting, or difficulty swallowing. REVIEW OF SYSTEMS General: no fevers, no chills, no night sweats, no recurrent infections, no change in appetite, no change in energy, and no significant changes in weight Respiratory: no cough, no wheezing, no shortness of breath, no hemoptysis Cardiovascular: no current chest pain, no chest pressure, no palpitations, and no swelling GI: No nausea, vomiting, or diarrhea Neurologic: No headache, weakness, numbness, tingling, neck stiffness, tremor, vertigo, dizziness, memory loss, syncope. PAST MEDICAL HISTORY Diagnosis Date Abdominal pain Depression resolved Dysmenorrhea 03/20/2010 GERD (gastroesophageal reflux disease) 08/2019 Hiatal hernia IC (interstitial cystitis) Menorrhagia 03/20/2010 Urgency of urination PAST SURGICAL HISTORY Procedure Laterality Date ABDOMINAL SURGERY HX BLADDER SURGERY HX bladder stretch COLONOSCOPY FLX DX W/COLLJ SPEC WHEN PFRMD 10/17/2021 HYSTERECTOMY 2012 HYSTEROSCOPY BI TUBE OCCLUSION W/PERM IMPLNTS 08/13/2010 ESSURE PROCEDURE performed by MELISSA LAU at OR HYSTEROSCOPY ENDOMETRIAL ABLATION 08/13/2010 HYSTEROSCOPY, ABLATION ENDOMETRIAL NOVASURE performed by MELISSA LAU at OR SKIN BIOPSY HX VAGINAL HYSTERECTOMY ALLERGIES Patient has no known allergies. MEDICATIONS semaglutide (OZEMPIC) 0.25 mg or 0.5 mg(2 mg/1.5 mL) pen Inject 0.5 mg subcutaneously one time a week. omeprazole (PRILOSEC) 20 mg capsule Take 1 capsule by mouth once daily. aspirin, enteric coated (ASPIRIN, ENTERIC COATED) 81 mg EC tablet Take 81 mg by mouth once daily. vitamin D3-vitamin K2, MK4, (K2 PLUS D3) 1,000-100 unit-mcg tab Take as directed OTC NUTRITIONAL SUPPLEMENT Calcium 1000 mg + Magnesium 500 mg + Zinc 25 mg take 4 capsules daily FAMILY HISTORY Problem Relation Age of Onset Blood Disease Mother Blood Clots other (Migraines) Mother Hypertension Father Prostate Cancer Maternal Grandfather Heart Other Heart Issues on Paternal side of family Blood Clots Maternal Grandmother Colon Cancer No Family History Social History Tobacco Use Smoking status: Former Types: Cigarettes Quit date: 2016 Years since quittin.8 Smokeless tobacco: Never Tobacco comments: Used to smoke 1 pack every 3-4 days Vaping Use Vaping Use: Never used Substance Use Topics Alcohol use: Yes Alcohol/week: 5.0 standard drinks Types: 2 Cans of Beer (12oz) per week Comment: occassionally Drug use: Yes Types: Marijuana Comment: Medical Marijuana -- for pain PRN; less than weekly PHYSICAL EXAM BP 114/78 Pulse 64 Resp 16 Wt 88 kg (194 lb) LMP 08/07/2010 BMI 31.31 kg/m General Appearance: well appearing, in no acute distress, alert Skin: Skin color, texture, turgor normal for age; Eyes: conjunctiva pink and moist, no icterus, sclera white, non-injected Lungs: Lungs clear to auscultation. No wheezing, rhonchi, rales. Heart: RRR without murmur, gallop, or rubs. No ectopy Abdomen: Abdomen soft, non-tender. Bowel sounds normal. No masses, organomegaly HEPATITIS B(1 of 3 - 3-dose series) Never done DEPRESSION ASSESSMENT Never done COVID-19 VACCINE(3 - Booster for Pfizer series) due on 11/13/2021 SHINGRIX VACCINE(1 of 2) Never done INFLUENZA(1) Never done MAMMOGRAM due on 08/20/2022 DTAP,TDAP,TD(1 - Tdap) due on 11/09/2022 HEPATITIS C SCREENING due on 05/05/2023 HIV SCREENING due on 05/05/2023 DIABETES SCREEN due on 08/03/2025 LIPID SCREEN due on 05/05/2027 COLORECTAL CANCER SCREENING due on 10/17/2031 PAP TESTING Discontinued HPV TESTING Discontinued DATA REVIEWED: Most recent labs and imaging results. ASSESSMENT/PLAN: 1. Chest pain, unspecified type - ICD9: 786.50, ICD10: R07.9 (primary diagnosis) - unsure on cause. Since this has occurred multiple times and has symptoms of diaphoresis and shortness of breath, needs and updated echo and stress test. If negative patient will need to see GI to see if her underlying GERD and hiatal hernia are cause of pain. - ECHO - PERFLUTREN LIPID MICROSPHERES 1.1 MG/ML INJECTION IN NS 10 ML - SODIUM CHLORIDE 0.9 % (FLUSH) INJECTION SYRINGE - EXERCISE STRESS ECG (WITHOUT IMAGING) - go to ER for increased shortness of breath, chest pain, palpitations, or any other urgent concerns. 2. Diaphoresis - ICD9: 780.8, ICD10: R61 As above - ECHO - PERFLUTREN LIPID MICROSPHERES 1.1 MG/ML INJECTION IN NS 10 ML - SODIUM CHLORIDE 0.9 % (FLUSH) INJECTION SYRINGE - EXERCISE STRESS ECG (WITHOUT IMAGING) 3. Shortness of breath - ICD9: 786.05, ICD10: R06.02 See #1 - ECHO - PERFLUTREN LIPID MICROSPHERES 1.1 MG/ML INJECTION IN NS 10 ML - SODIUM CHLORIDE 0.9 % (FLUSH) INJECTION SYRINGE - EXERCISE STRESS ECG (WITHOUT IMAGING) 4. Gastroesophageal reflux disease, unspecified whether esophagitis present - ICD9: 530.81, ICD10: K21.9 - Discussed lifestyle modifications including losing weight, limiting caffeine, no meals three hours before sleep, and head of bed elevation - adding pepcid to be taken before bed and omeprazole to take in AM. May need to see GI again but will wait until after stress test completed Prescription instructions reviewed with patient as applicable. Potential red flag symptoms discussed with the patient. Reviewed appropriate action plan to take if red flag symptoms occur. Patient agreeable to treatment plan. Dona Cochran APRN.CNP documented in this encounter [facility] 08-26-2022 History of Presen t illness Narrative Radiology Service Progress Note PATIENT NAME: Janet Montesinos DATE OF SERVICE: August 26, 2022 TIME: 2:15 PM PATIENT IDENTITY VERIFICATION COMPLETED USING TWO (2) IDENTIFIERS: Name and Date of confirmed by patient verbally. FALL SCREENING: Has the patient had 2 falls in the last year or 1 fall with injury or currently using an Ambulatory Assistive Device (Walker, Cane, Wheelchair, Crutches, etc.)? No PATIENT GENDER DATA: Female. status: : No status: NO. PATIENT RELEVANT IMPLANT DATA REVIEWED: Not Applicable RADIOLOGY DEPARTMENT: Mammography PERIPHERAL IV DATA: Not applicable SIGNED BY: Ronel Eaton [employer] August 26, 2022 2:15 PM documented in this encounter [facility] 06-08-2022 Miscellaneous Notes Patient returned call and given provider's message below and patient verbalized understanding. Zuly Sanders RN Called and left a voicemail for the Patient to call back and ask for a nurse to receive the providers message. Ariana Moore RN Please let patient know that the ozempic is covered by insurance. Start taking as discussed in previous telephone encounter and follow up in 4 weeks Thank you Dona Cochran APRN.SHERRIE No PA questions rec'd electronically. Tried to do via covermymeds. This is the response. Diagnosis OZEMPIC is a glucagon-like peptide 1 (GLP-1) receptor agonist indicated as: an adjunct to diet and exercise to improve glycemic control in adults with type 2 diabetes mellitus to reduce the risk of major adverse cardiovascular events in adults with type 2 diabetes mellitus and established cardiovascular disease JANET MONTESINOS ([place]: [id number]) Rx #: [id number] Ozempic (0.25 or 0.5 MG/DOSE) 2MG/1.5ML pen-injectors Form [facility] Electronic PA Form (2017 NCPDP) Created 1 hour ago Sent to Plan 1 minute ago Plan Response less than a minute ago Submit Clinical Questions Determination N/A Message from Plan Your PA has been resolved, no additional PA is required. For further inquiries please contact the number on the back of the member prescription card. (Message [phone]) rec'd covermymeds PA for ozempic. Will try to complete electronically mal. documented in this encounter [facility] 06-03-2022 Miscellaneous Notes Generic ozempic prescribed. Patient needs a 4 weeks follow up. Thank you Dona Cochran APRN.CNP Today, discussed initiating GLP1 RA for weight loss potential. Patient agrees to start semaglutide therapy. Patient has no history of pancreatitis and no personal or family history of medullary thyroid cancer/c-cell hyperplasia. Patient made informed decision to try the medication. Medication has been fully explained to patient, including risk of C-cell hyperplasia in the thyroid gland occurring in mice/rats, injection technique. [facility], I do not see an issue with this. I can prescribe and have her follow up with me in 4 weeks, unless the plan was for her to follow up with you. Thank you Dona Cochran APRN.[employer] Checking to see if okay to start Wegovy/ozempic for her for weight loss with Dr. Vaca. documented in this encounter [facility] 05-20-2022 Miscellaneous Notes Raheel Rawls Forwarding this message to you , in case you did not have a chance to see it documented in this encounter [facility] 05-05-2022 Instructions [facility] Goodson APRN.CNS - 05/05/2022 9:45 AM EDT Work on portion control and try to add exercise on the weekends. Consider biking and water exercises. Check with your insurance regarding coverage of medication semaglutide or Wegovy (brand name). This can be used for weight loss. If not covered by your insurance for weight loss, it appears it would be covered if ordered as semaglutide or Ozempic (brand name). This medication is a once weekly injection that is slowly titrated up. documented in this encounter [facility] 05-05-2022 History of Presen t illness Narrative SUBJECTIVE: HEPATITIS C SCREENING Never done HIV SCREENING Never done DTAP,TDAP,TD(1 - Tdap) Never done COVID-19 VACCINE(3 - Booster for Pfizer series) due on 02/16/2022 HPI Janet Montesinos is a 51 year old female. PMH signficant for ACTIVE PROBLEM LIST Dysmenorrhea Menorrhagia Chest Pain Palpitations Ic (Interstitial Cystitis) Urgency of Urination Gerd (Gastroesophageal Reflux Disease) PCP: Natalia Vaca MD Presents tofday for routine physical. She knows she is in her usual state of health. States she feels like she is in menopause, feels foggy, some fatigue. Notes history of hysterectomy, ovary retained. She notes GERD currently controlled with medication. Taking omeprazole 20 mg daily. Without report of nausea vomiting abdominal pain BRBPR black or tarry stools. Notes occasional constipation helped with MiraLAX. Weight: Stable Diet: Tries to eat healthy but notes that appetite seems increased. Exercise: Notes difficulty with exercise due to long work hours and fracture of knee last year. Biking is her option. Labs: Approximately 1 year ago. Review of Systems Constitutional: Negative. Respiratory: Negative. Cardiovascular: Negative. Gastrointestinal: Negative. Endocrine: Negative. Musculoskeletal: Positive for arthralgias. Psychiatric/Behavioral: Positive for decreased concentration. Objective LMP 08/07/2010 Physical Exam Vitals and nursing note reviewed. Constitutional: Appearance: Normal appearance. She is obese. HENT: Head: Normocephalic and atraumatic. Eyes: Conjunctiva/sclera: Conjunctivae normal. Neck: Thyroid: No thyroid mass or thyromegaly. Vascular: Normal carotid pulses. No JVD. Cardiovascular: Rate and Rhythm: Normal rate and regular rhythm. Pulses: Carotid pulses are 2+ on the right side and 2+ on the left side. Radial pulses are 2+ on the right side and 2+ on the left side. Heart sounds: Normal heart sounds. Pulmonary: Effort: Pulmonary effort is normal. Abdominal: General: Bowel sounds are normal. Palpations: Abdomen is soft. Musculoskeletal: Right lower leg: No edema. Skin: General: Skin is warm and dry. Neurological: General: No focal deficit present. Mental Status: She is alert and oriented to person, place, and time. ALLERGIES No Known Allergies Medications aspirin, enteric coated (ASPIRIN, ENTERIC COATED) 81 mg EC tablet Take 81 mg by mouth once daily. vitamin D3-vitamin K2, MK4, (K2 PLUS D3) 1,000-100 unit-mcg tab Take as directed OTC NUTRITIONAL SUPPLEMENT Calcium 1000 mg + Magnesium 500 mg + Zinc 25 mg take 4 capsules daily omeprazole (PRILOSEC) 40 mg capsule Take 1 capsule by mouth once daily. polyethylene glycol 3350 (MIRALAX, GLYCOLAX) 17 gram/dose powder Use as directed for Miralax / Gatorade Bowel Prep Kit Gatorade Sports Drink Use as directed for Miralax / Gatorade Bowel Prep Kit Bisacodyl (DULCOLAX) 5 mg tab Use as directed for Miralax / Gatorade Bowel Prep Kit PAST MEDICAL HISTORY Diagnosis Date Abdominal pain Depression resolved Dysmenorrhea 03/20/2010 GERD (gastroesophageal reflux disease) 08/2019 Hiatal hernia IC (interstitial cystitis) Menorrhagia 03/20/2010 Urgency of urination Social History Tobacco Use Smoking status: Former Smoker Types: Cigarettes Quit date: 2017 Years since quittin.4 Smokeless tobacco: Never Used Tobacco comment: Used to smoke 1 pack every 3-4 days Vaping Use Vaping Use: Never used Substance Use Topics Alcohol use: Yes Alcohol/week: 5.0 standard drinks Types: 2 Cans of Beer (12oz) per week Comment: occassionally Drug use: Yes Types: Marijuana Comment: Medical Marijuana -- for pain PRN; less than weekly Component Latest Ref Rng & Units 08/26/2019 09/28/2019 07/31/2021 09/01/2021 WBC 3.70 - 11.00 k/uL 7.80 9.52 RBC 3.90 - 5.20 m/uL 4.76 4.57 Hemoglobin 11.5 - 15.5 g/dL 14.6 13.7 Hematocrit 36.0 - 46.0 % 43.4 42.9 MCV 80.0 - 100.0 fL 91.2 93.9 MCH 26.0 - 34.0 pG 30.7 30.0 MCHC 30.5 - 36.0 g/dL 33.6 31.9 RDW-CV 11.5 - 15.0 % 13.4 14.2 Platelet Count 150 - 400 k/uL 236 242 MPV 9.0 - 12.7 fL 9.6 9.4 Neut% % 76.2 69.7 Abs Neut (ANC) 1.45 - 7.50 k/uL 5.94 6.63 Lymph% % 18.2 24.8 Abs Lymph 1.00 - 4.00 k/uL 1.42 2.36 [place]% % 4.6 4.8 Abs [place] <0.87 k/uL 0.36 0.46 Eosin% % 0.4 0.6 Abs Eosin <0.46 k/uL 0.03 0.06 Baso% % 0.6 0.1 Abs Baso <0.11 k/uL 0.05 0.01 Diff Type Auto Diff Protein, Total 6.3 - 8.0 g/dL 6.4 Albumin 3.9 - 4.9 g/dL 3.9 Calcium 8.5 - 10.2 mg/dL 8.3 (L) Bilirubin, Total 0.2 - 1.3 mg/dL 0.2 Alkaline Phosphatase 34 - 123 U/L 83 AST 13 - 35 U/L 11 (L) Glucose 74 - 99 mg/dL 90 BUN 7 - 21 mg/dL 13 Creatinine 0.58 - 0.96 mg/dL 0.75 Sodium 136 - 144 mmol/L 139 Potassium 3.7 - 5.1 mmol/L 3.8 Chloride 97 - 105 mmol/L 103 CO2 22 - 30 mmol/L 25 Anion Gap 9 - 18 mmol/L 11 ALT 7 - 38 U/L 7 eGFR- >60 eGFR-All Other Races . >60 Cholesterol, Total <200 mg/dL 196 Triglyceride <150 mg/dL 106 HDL Cholesterol >39 mg/dL 55 LDL Cholesterol <100 mg/dL 120 (H) Non HDL Cholesterol <130 mg/dL 141 (H) Fasting Time hrs 12 VLDL Cholesterol <30 mg/dL 21 TC:HDL Ratio <5.10 3.56 LDL:HDL Ratio <2.54 2.18 Total Cholesterol, Nonfasting <200 mg/dL 168 Triglycerides, Nonfasting <150 mg/dL 79 HDL Cholesterol, Nonfasting >39 mg/dL 47 LDL Cholesterol, Nonfasting <100 mg/dL 105 (H) Non HDL Cholesterol, Nonfasting <130 mg/dL 121 VLDL Cholesterol, Nonfasting <30 mg/dL 16 Total Chol/HDL Ratio, Nonfasting <5.10 mg/dL 3.57 LDL/HDL Ratio, Nonfasting <2.54 mg/dL 2.23 Hemoglobin A1C 4.3 - 5.6 % 5.3 Estimated Average Glucose mg/dL 105 PT Sec 9.7 - 13.0 sec 9.3 (L) PT INR 0.9 - 1.3 0.9 [place] High Sensitivity 0 - 12 ng/L <6 <6 Magnesium 1.7 - 2.3 mg/dL 1.9 d Dimer <500 ng/mL FEU 420 APTT 23.0 - 32.4 sec 25.2 ASSESSMENT/PLAN: 1. Routine medical exam - ICD9: V70.0, ICD10: Z00.00 (primary diagnosis) -Endorse portion control, plant-based diet such as Mediterranean diet and routine exercise, if unable to complete exercise during the week complete on the weekends. -Endorse calcium intake with supplements or by diet of 1000 mg/day - Mammogram ordered - Endorse limiting alcohol intake to 1 drink per day - Maps InDeed COVID-19 VACCINE, AGE 12+ YR ([place] TOP) - LIPID PANEL BASIC - COMP METABOLIC PANEL - CBC + DIFF - TSH BLD 2. Gastroesophageal reflux disease, unspecified whether esophagitis present - ICD9: 530.81, ICD10: K21.9 Stable, currently controlled, continue to monitor. - COMP METABOLIC PANEL - CBC + DIFF - MAGNESIUM BLD 3. Encounter for screening for diabetes mellitus - ICD9: V77.1, ICD10: Z13.1 4. Screening for lipid disorders - ICD9: V77.91, ICD10: Z13.220 - TSH BLD 5. Class 1 obesity without serious comorbidity with body mass index (BMI) of 30.0 to 30.9 in adult, unspecified obesity type - ICD9: 278.00, V85.30, ICD10: E66.9, Z68.30 Stable - Pharmacological intervention - consider semaglutide/Wegovy. If not covered by insurance in this form order semaglutide/Ozempic. Notes she may be interested in an alternate medication if this is not covered by insurance, she would discuss with Natalia Vaca MD. - COMP METABOLIC PANEL - TSH BLD 6. Encounter for immunization - ICD9: V03.89, ICD10: Z23 - PFIZER-BIONTECH COVID-19 VACCINE, AGE 12+ YR ([place] TOP) 7. HIV screening declined - ICD9: V64.2, ICD10: Z53.20 8. Screening for hepatitis C declined - ICD9: V64.2, ICD10: Z53.20 12 mo follow up Natalia Vaca MD Sooner appt if needing to return for titration of Wegovy. Advised: Work on portion control and try to add exercise on the weekends. Consider biking and water exercises. Check with your insurance regarding coverage of medication semaglutide or Wegovy (brand name). This can be used for weight loss. If not covered by your insurance for weight loss, it appears it would be covered if ordered as semaglutide or Ozempic (brand name). This medication is a once weekly injection that is slowly titrated up. [facility] Good[facility] APRN.CNS Medical Decision Making: Problems: Moderate: 2+ stable chronic illnesses Risk: Moderate: Drug management Medical Decision Making Level: 4 - Moderate . documented in this encounter [facility] 06-13-2021 History of Presen t illness Narrative Radiology Service Progress Note PATIENT NAME: Janet Montesinos DATE OF SERVICE: June 13, 2021 TIME: 1:16 PM PATIENT IDENTITY VERIFICATION COMPLETED USING TWO (2) IDENTIFIERS: Name and Date of confirmed by patient verbally. FALL SCREENING: Has the patient had 2 falls in the last year or 1 fall with injury or currently using an Ambulatory Assistive Device (Walker, Cane, Wheelchair, Crutches, etc.)? No PATIENT GENDER DATA: Female. status: : No status: NO. PATIENT RELEVANT IMPLANT DATA REVIEWED: Yes RADIOLOGY DEPARTMENT: MR; Exam(s) Completed: Lower MSK: Knee, right PERIPHERAL IV DATA: Not applicable SIGNED BY: Anna Madrid June 13, 2021 1:16 PM documented in this encounter [facility] 04-28-2021 History of Presen t illness Narrative Radiology Service Progress Note PATIENT NAME: Janet Montesinos DATE OF SERVICE: April 28, 2021 TIME: 4:30 PM PATIENT IDENTITY VERIFICATION COMPLETED USING TWO (2) IDENTIFIERS: Name and Date of confirmed by patient verbally. FALL SCREENING: Has the patient had 2 falls in the last year or 1 fall with injury or currently using an Ambulatory Assistive Device (Walker, Cane, Wheelchair, Crutches, etc.)? No PATIENT GENDER DATA: Female. status: : No status: NO. PATIENT RELEVANT IMPLANT DATA REVIEWED: Yes RADIOLOGY DEPARTMENT: General X-ray: Exam(s) Completed: Lower Extremity X-Ray(s): Knee, AP / LAT Right and Wt. Bearing PERIPHERAL IV DATA: Not applicable SIGNED BY: RT Marylin(R) April 28, 2021 4:30 PM documented in this encounter [facility] documented as of this encounter (statuses as of 05/05/2022) [facility] History of Past illness Narrative* Problem Noted Date Resolved Date SUMMARY 04/07/2013 04/08/2013 Overview: 42 year old female with PMH of Chronic GERD admitted with atypical chest pain - DD include cardiac Vs erosive esophagitis Vs Esophageal motility disorders documented as of this encounter (statuses as of 05/22/2022) [facility] History of Past illness Narrative* Problem Noted Date Resolved Date SUMMARY 04/07/2013 04/08/2013 Overview: 42 year old female with PMH of Chronic GERD admitted with atypical chest pain - DD include cardiac Vs erosive esophagitis Vs Esophageal motility disorders documented as of this encounter (statuses as of 06/04/2022) [facility] of Past illness Narrative* Problem Noted Date Resolved Date SUMMARY 04/07/2013 04/08/2013 Overview: 42 year old female with PMH of Chronic GERD admitted with atypical chest pain - DD include cardiac Vs erosive esophagitis Vs Esophageal motility disorders documented as of this encounter (statuses as of 06/08/2022) [facility] of Past illness Narrative* Problem Noted Date Resolved Date SUMMARY 04/07/2013 04/08/2013 Overview: 42 year old female with PMH of Chronic GERD admitted with atypical chest pain - DD include cardiac Vs erosive esophagitis Vs Esophageal motility disorders documented as of this encounter (statuses as of 08/11/2022) [facility] of Past illness Narrative* Problem Noted Date Resolved Date SUMMARY 04/07/2013 04/08/2013 Overview: 42 year old female with PMH of Chronic GERD admitted with atypical chest pain - DD include cardiac Vs erosive esophagitis Vs Esophageal motility disorders documented as of this encounter (statuses as of 08/26/2022) [facility] of [facility] illness Narrative* Problem Noted Date Resolved Date SUMMARY 04/07/2013 04/08/2013 Overview: 42 year old female with PMH of Chronic GERD admitted with atypical chest pain - DD include cardiac Vs erosive esophagitis Vs Esophageal motility disorders documented as of this encounter (statuses as of 08/27/2022) [facility] of [facility] illness Narrative* Problem Noted Date Resolved Date SUMMARY 04/07/2013 04/08/2013 Overview: 42 year old female with PMH of Chronic GERD admitted with atypical chest pain - DD include cardiac Vs erosive esophagitis Vs Esophageal motility disorders documented as of this encounter (statuses as of 08/28/2022) [facility] Narrative* Problem Noted Date Resolved Date SUMMARY 04/07/2013 04/08/2013 Overview: 42 year old female with PMH of Chronic GERD admitted with atypical chest pain - DD include cardiac Vs erosive esophagitis Vs Esophageal motility disorders documented as of this encounter (statuses as of 09/01/2022) [facility] Narrative* Problem Noted Date Resolved Date SUMMARY 04/07/2013 04/08/2013 Overview: 42 year old female with PMH of Chronic GERD admitted with atypical chest pain - DD include cardiac Vs erosive esophagitis Vs Esophageal motility disorders documented as of this encounter (statuses as of 09/28/2022) [facility] Narrative* Problem Noted Date Resolved Date SUMMARY 04/07/2013 04/08/2013 Overview: 42 year old female with PMH of Chronic GERD admitted with atypical chest pain - DD include cardiac Vs erosive esophagitis Vs Esophageal motility disorders documented as of this encounter (statuses as of 09/30/2022) [facility] Narrative* Problem Noted Date Resolved Date SUMMARY 04/07/2013 04/08/2013 Overview: 42 year old female with PMH of Chronic GERD admitted with atypical chest pain - DD include cardiac Vs erosive esophagitis Vs Esophageal motility disorders documented as of this encounter (statuses as of 05/05/2023) [facility] Narrative* Problem Noted Date Resolved Date SUMMARY 04/07/2013 04/08/2013 Overview: 42 year old female with PMH of Chronic GERD admitted with atypical chest pain - DD include cardiac Vs erosive esophagitis Vs Esophageal motility disorders documented as of this encounter (statuses as of 05/14/2023) [facility] Narrative* Problem Noted Date Diagnosed Date Resolved Date SUMMARY 04/07/2013 04/08/2013 Overview: 42 year old female with PMH of Chronic GERD admitted with atypical chest pain - DD include cardiac Vs erosive esophagitis Vs Esophageal motility disorders documented as of this encounter (statuses as of 06/08/2023) [facility] Narrative* Problem Noted Date Diagnosed Date Resolved Date SUMMARY 04/07/2013 04/08/2013 Overview: 42 year old female with PMH of Chronic GERD admitted with atypical chest pain - DD include cardiac Vs erosive esophagitis Vs Esophageal motility disorders documented as of this encounter (statuses as of 07/14/2023) [facility] Narrative* Problem Noted Date Diagnosed Date Resolved Date SUMMARY 04/07/2013 04/08/2013 Overview: 42 year old female with PMH of Chronic GERD admitted with atypical chest pain - DD include cardiac Vs erosive esophagitis Vs Esophageal motility disorders documented as of this encounter (statuses as of 07/30/2023) [facility] Narrative* Problem Noted Date Diagnosed Date Resolved Date SUMMARY 04/07/2013 04/08/2013 Overview: 42 year old female with PMH of Chronic GERD admitted with atypical chest pain - DD include cardiac Vs erosive esophagitis Vs Esophageal motility disorders documented as of this encounter (statuses as of 08/11/2023) [facility] Narrative* Problem Noted Date Diagnosed Date Resolved Date SUMMARY 04/07/2013 04/08/2013 Overview: 42 year old female with PMH of Chronic GERD admitted with atypical chest pain - DD include cardiac Vs erosive esophagitis Vs Esophageal motility disorders documented as of this encounter (statuses as of 08/24/2023) [facility] Narrative* Problem Noted Date Diagnosed Date Resolved Date SUMMARY 04/07/2013 04/08/2013 Overview: 42 year old female with PMH of Chronic GERD admitted with atypical chest pain - DD include cardiac Vs erosive esophagitis Vs Esophageal motility disorders documented as of this encounter (statuses as of 09/12/2023) [facility] Narrative* Problem Noted Date Diagnosed Date Resolved Date SUMMARY 04/07/2013 04/08/2013 Overview: 42 year old female with PMH of Chronic GERD admitted with atypical chest pain - DD include cardiac Vs erosive esophagitis Vs Esophageal motility disorders documented as of this encounter (statuses as of 09/12/2023) [facility] Narrative* Problem Noted Date Diagnosed Date Resolved Date SUMMARY 04/07/2013 04/08/2013 Overview: 42 year old female with PMH of Chronic GERD admitted with atypical chest pain - DD include cardiac Vs erosive esophagitis Vs Esophageal motility disorders documented as of this encounter (statuses as of 09/12/2023) [facility] Narrative* Problem Noted Date Diagnosed Date Resolved Date SUMMARY 04/07/2013 04/08/2013 Overview: 42 year old female with PMH of Chronic GERD admitted with atypical chest pain - DD include cardiac Vs erosive esophagitis Vs Esophageal motility disorders documented as of this encounter (statuses as of 09/12/2023) [facility] of [facility] Narrative* Problem Noted Date Diagnosed Date Resolved Date SUMMARY 04/07/2013 04/08/2013 Overview: 42 year old female with PMH of Chronic GERD admitted with atypical chest pain - DD include cardiac Vs erosive esophagitis Vs Esophageal motility disorders documented as of this encounter (statuses as of 09/12/2023) [facility] Narrative* Problem Noted Date Diagnosed Date Resolved Date SUMMARY 04/07/2013 04/08/2013 Overview: 42 year old female with PMH of Chronic GERD admitted with atypical chest pain - DD include cardiac Vs erosive esophagitis Vs Esophageal motility disorders documented as of this encounter (statuses as of 09/17/2023) [facility] of [facility] illness Narrative* Problem Noted Date Diagnosed Date Resolved Date SUMMARY 04/07/2013 04/08/2013 Overview: 42 year old female with PMH of Chronic GERD admitted with atypical chest pain - DD include cardiac Vs erosive esophagitis Vs Esophageal motility disorders documented as of this encounter (statuses as of 11/15/2023) [facility] Routine medical exam- Primary Routine general medical examination at a health care facility Gastroesophageal reflux disease, unspecified whether esophagitis present Encounter for screening for diabetes mellitus Screening for diabetes mellitus Screening for lipid disorders Class 1 obesity without serious comorbidity with body mass index (BMI) of 30.0 to 30.9 in adult, unspecified obesity type Encounter for immunization Need for other specified prophylactic vaccination against single bacterial disease HIV screening declined Screening for hepatitis C declined [facility] Diagnosis Visit for screening mammogram- Primary Other screening mamm[facility] Chest pain, unspecified type- Primary Diaphoresis Generalized hyperhidrosis Shortness of breath Gastroesophageal reflux disease, unspecified whether esophagitis present [facility] Diagnosis Abnormal mammogram- Primary Abnormal mammogram, unspecified [facility] Diagnosis Chest pain, unspecified type- Primary Gastroesophageal reflux disease, unspecified whether esophagitis present [facility] Diagnosis Abnormal mammogram- Primary Abnormal mammogram, unspecified [facility] Diagnosis Acute pain of right knee- Primary [facility] Diagnosis Acute pain of right knee- Primary Annual physical exam Routine general medical examination at a health care facility [facility] Diagnosis Acute pain of right knee [facility] Diagnosis Insufficiency fracture of femur, right, initial encounter ([facility]) Acute pain of right knee [facility] Diagnosis Insufficiency fracture of femur, right, initial encounter ([facility])- Primary Acute pain of right knee [facility] Diagnosis Right knee pain, unspecified chronicity [facility] Diagnosis Abnormal mammogram Abnormal mammogram, unspecified [facility] Diagnosis Acute pain of right knee [facility] Diagnosis Acute pain of right knee Crepitus of joint of right knee Knee locking, right Recurrent instability of right knee joint Other joint derangement, not elsewhere classified, lower leg Osteophyte of right knee Other enthesopathy of knee [facility]* Diagnosis Insufficiency fracture of right femur with routine healing, subsequent encounter- Primary [facility] Encounter for screening mammogram for breast cancer documented in this encounter [facility] for referral (narrative)* Diagnostic Procedure Only (Routine) - Pending Review Specialty Diagnoses / Procedures Referred By Rhianna bansal Referred To Contact [facility] Diagnoses Visit for screening mammogram Procedures RADHA SCREENING SCREENING MAMMOGRAPHY BI 2-VIEW BREAST INC Natalia Branham MD [address] [place] [address] [facility] [address] [place] [address] Referral ID Status Reason Start Date Expiration Date Visits Requested Visits Authorized [id number] Pending Review Auto-Generat ed Referral 08/11/2022 09/10/2023 1 1 [facility] for referral (narrative)* Outpatient Procedure (Routine) - Authorized Specialty Diagnoses / Procedures Referred By Rhianna bansal [facility] Diagnoses Chest pain, unspecified type Diaphoresis Shortness of breath Procedures ECHO ECHO TTHRC R-T 2D W/WOM-MODE COMPL SPEC&COLR D Dona Cochran APRN.[employer] [address] [place] [address] [facility] [address] [place] [address] Referral ID Status Reason Start Date Expiration Date Visits Requested Visits Authorized [id number] Authorized Auto-Generat ed Referral 2 08/26/2023 1 1 [facility] (narrative)* Diagnostic Procedure Only (Routine) - Pending Review Specialty Diagnoses / Procedures Referred By Rhianna bansal Referred To Contact BR IMAGING Diagnoses Abnormal mammogram Procedures US BREAST LTD LT US BREAST UNI REAL TIME WITH IMAGE LIMITED Dona Cochran APRN.CNP [address] [place] [address] [facility] [address] [place] [address] Referral ID Status Reason Start Date Expiration Date Visits Requested Visits Authorized [id number] Pending Review Auto-Generat ed Referral 2 09/26/2023 1 1 * Diagnostic Procedure Only (Routine) - Pending Review Specialty Diagnoses / Procedures Referred By Contac t Referred To Contact BR IMAGING Diagnoses Abnormal mammogram Procedures US BREAST LTD RT US BREAST UNI REAL TIME WITH IMAGE LIMITED Dona Cochran APRN.[employer] [address] [place] [address] [facility] [address] [place] [address] Referral ID Status Reason Start Date Expiration Date Visits Requested Visits Authorized [id number] Pending Review Auto-Generat ed Referral 2 09/26/2023 1 1 * Diagnostic Procedure Only (Routine) - Pending Review Specialty Diagnoses / Procedures Referred By Contac t Referred To Contact BR IMAGING Diagnoses Abnormal mammogram Procedures RADHA DIAGNOSTIC BILAT DIAGNOSTIC MAMMOGRAPHY COMPUTER-AIDED DETCJ Dona Cochran APRN.[employer] [address] [place] [address] [facility] [address] [place] [address] Referral ID Status Reason Start Date Expiration Date Visits Requested Visits Authorized [id number] Pending Review Auto-Generat ed Referral 2 09/26/2023 1 1 [facility] for referral (narrative)* Diagnostic Procedure Only (Routine) - Pending Review Specialty Diagnoses / Procedures Referred By Contac t Referred To Contact BR IMAGING Diagnoses Abnormal mammogram Procedures RADHA DIAGNOSTIC RT DIAGNOSTIC MAMMOGRAPHY COMPUTER-AIDED DETCJ UNI Dona Cochran APRN.[employer] [address] [place] [address] [facility] [address] [place] [address] Referral ID Status Reason Start Date Expiration Date Visits Requested Visits Authorized [id number] Pending Review Auto-Generat ed Referral 03/30/2023 10/30/2023 1 1 [facility] for referral (narrative)* Diagnostic Procedure Only (Urgent) - Closed Specialty Diagnoses / Procedures Referred By Orlandoac t Referred To Contact XR IMAGING Diagnoses Acute pain of right knee Procedures XR KNEE GENERAL 4V AP BOTH/PA BOTH/LAT/MERC RIGHT RADIOLOGIC EXAM KNEE COMPLETE 4/MORE VIEWS Yoselin Sandhu APRN.CNP [address] [place] [address] [facility] Referral ID Status Reason Start Date Expiration Date V isits Requested Visits Authorized [id number] Closed Auto-Generate d Referral 05/14/2023 06/12/2024 1 1 [facility] for referral (narrative)* Diagnostic Procedure Only (Routine) - Closed Specialty Diagnoses / Procedures Referred By Contac t Referred To Contact XR IMAGING Diagnoses Right knee pain, unspecified chronicity Procedures XR KNEE GENERAL 4V AP BOTH/PA BOTH/LAT/MERC RT KNEE AP-WGT/LAT/MERCHANT Megan Velazquez PA-C [address] [place] [address] [place] [address] Referral ID Status Reason Start Date Expiration Date V isits Requested Visits Authorized [id number] Closed Auto-Generate d Referral 08/13/2021 09/12/2022 1 1 [facility] for referral (narrative)* Diagnostic Procedure Only (Routine) - Authorized Specialty Diagnoses / Procedures Referred By Contac t Referred To Contact BR IMAG[facility] Diagnoses Encounter for screening mammogram for breast cancer Procedures RADHA SCREENING W BLAYNE SCREENING DIGITAL BREAST TOMOSYNTHESIS BI SCREENING MAMMOGRAPHY BI 2-VIEW BREAST INC Natalia Branham MD [address] [place] [address] Br Imaging [facility] [place] [address] Referral ID Status Reason Start Date Expiration Date Visits Requested Visits Authorized [id number] Authorized Auto-Generat ed Referral 11/10/2023 12/09/2024 1 1 [facility] for visit Narrative* Diagnostic Procedure Only (Routine) - Closed Specialty Diagnoses / Procedures Referred By Contac t Referred To Contact BR IMAGING Diagnoses Visit for screening mammogram Procedures RADHA SCREENING SCREENING MAMMOGRAPHY BI 2-VIEW BREAST INC Natalia Branham MD [address] [place] [address] [facility] [address] [place] [address] Referral ID Status Reason Start Date Expiration Date V isits Requested Visits Authorized [id number] Closed Auto-Generate d Referral 08/11/2022 09/10/2023 1 1 [facility] for visit Narrative* Diagnostic Procedure Only (Routine) - Closed Specialty Diagnoses / Procedures Referred By Contac t Referred To Contact XR IMAGING Diagnoses Right knee pain, unspecified chronicity Procedures XR KNEE GENERAL 4V AP BOTH/PA BOTH/LAT/MERC RT KNEE AP-WGT/LAT/MERCHANT Megan Velazquez, PA-C [address] [place] [address] [place] [address] Referral ID Status Reason Start Date Expiration Date V isits Requested Visits Authorized [id number] Closed Auto-Generate d Referral 08/13/2021 09/12/2022 1 1 [facility] for visit Narrative* Diagnostic Procedure Only (Routine) - Closed Specialty Diagnoses / Procedures Referred By Contac t Referred To Contact BR IMAGING Diagnoses Abnormal mammogram Procedures RADHA DIAGNOSTIC BILAT DIAGNOSTIC MAMMOGRAPHY COMPUTER-AIDED DETCJ Dona Blackmon, LALITA.[employer] [address] [place] [address] [facility] [address] [place] [address] Referral ID Status Reason Start Date Expiration Date V isits Requested Visits Authorized [id number] Closed Auto-Generate d Referral 08/27/2022 09/26/2023 1 1 [facility] Summary Purpose Family History No Family History Records FoundNo Family History Records FoundNo Family History Records FoundNo Family History Records FoundNo Family History Records Found Advance Directives No Advanced Directives Records FoundDocuments on File Type Date Recorded 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 Expl 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 Advance Directive(s) 10/17/2021 9:37 AM Advance Directive(s) 07/31/2021 12:57 PM Advance Directive(s) 08/26/2019 12:03 PM Advance Directive(s) 07/21/2018 10:40 AM Advance Directive(s) 04/18/2018 11:22 AM Advance Directive(s) 12/23/2017 6:24 AM Documents on File Type Date Recorded 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 Expl anation Advance Directive(s) 10/17/2021 9:37 AM Advance Directive(s) 07/31/2021 12:57 PM Advance Directive(s) 08/26/2019 12:03 PM Advance Directive(s) 07/21/2018 10:40 AM Advance Directive(s) 04/18/2018 11:22 AM Advance Directive(s) 12/23/2017 6:24 AM Reason for Referral Specialty Diagnoses / Procedures Referred By Rhianna t Referred To Contact Dona Cochran APRN.[employer] [address] [place] [address] Referral ID Status Reason Start Date Expiration Date Visits Re quested Visits Authorized [id number] Closed 1 1 Specialty Diagnoses / Procedures Referred By Rhianna t Referred To Contact Orthopedics Diagnoses Acute pain of right knee Procedures CONSULT TO ORTHOPAEDICS OFFICE/OUTPATIENT NEW HIGH MDM 60-74 MINUTES Dona Cochran APRN.[employer] [address] [place] [address] Referral ID Status Reason Start Date Expiration Date Visits Requested Visits Authorized [id number] Pending Review PCP Requested Referral 06/07/2023 06/06/2024 1 1 Specialty Diagnoses / Procedures Referred By Rhianna t Referred To Contact MR IMAGING Diagnoses Acute pain of right knee Procedures MRI KNEE WO IVCON RIGHT MRI ANY JT LOWER EXTREM W/O CONTRAST Kathi Carlson PA-C [address] [place] [address] [place] [address] Referral ID Status Reason Start Date Expiration Date Visits Requested Visits Authorized [id number] Authorized Auto-Generat ed Referral 07/14/2023 08/12/2024 1 1 Specialty Diagnoses / Procedures Referred By Rhianna t Referred To Contact [facility] Diagnoses Insufficiency fracture of femur, right, initial encounter (HCC) Acute pain of right knee Procedures CONSULT TO PHYSICAL THERAPY PHYSICAL THERAPY EVALUATION HIGH COMPLEX 45 MINS Kathi Moon PA-C [address] [place] [address] [facility] [address] [place] [address] Referral ID Status Reason Start Date Expiration Date V isits Requested Visits Authorized [id number] Closed Auto-Generate d Referral 07/28/2023 11/07/2023 1 1 Referral ID Status Reason Start Date Expiration Date V isits Requested Visits Authorized [id number] Closed Auto-Generate d Referral 07/14/2023 08/12/2024 1 1 Additional Source Comments INFORMATION SOURCE (unrecogn ized section and content) DATE CREATED AUTHOR AUTHOR'S ORGANIZ ATION 05/12/2018 [facility] DATE CREATED AUTHOR AUTHOR'S ORGANIZ ATION 08/27/2019 [facility] DATE CREATED AUTHOR AUTHOR'S ORGANIZ ATION 12/16/2021 [facility] [employer] [facility] DATE CREATED AUTHOR AUTHOR'S ORGANIZ ATION 12/09/2023 [facility] Source Comments (unrecognize d section and content) In the event this informatio n is protected by the Federal Confidentiality of Alcohol and Drug Abuse Patient Records regulations: The Federal rules restrict any use of the information to criminally investigate or prosecute any alcohol or drug abuse patient.[facility] the event this information is protected by the Federal Confidentiality of Alcohol and Drug Abuse Patient Records regulations: The Federal rules restrict any use of the information to criminally investigate or prosecute any alcohol or drug abuse patient.[facility] the event this information is protected by the Federal Confidentiality of Alcohol and Drug Abuse Patient Records regulations: The Federal rules restrict any use of the information to criminally investigate or prosecute any alcohol or drug abuse patient.[facility] the event this information is protected by the Federal Confidentiality of Alcohol and Drug Abuse Patient Records regulations: The Federal rules restrict any use of the information to criminally investigate or prosecute any alcohol or drug abuse patient.[facility] the event this information is protected by the Federal Confidentiality of Alcohol and Drug Abuse Patient Records regulations: The Federal rules restrict any use of the information to criminally investigate or prosecute any alcohol or drug abuse patient.[facility] the event this information is protected by the Federal Confidentiality of Alcohol and Drug Abuse Patient Records regulations: The Federal rules restrict any use of the information to criminally investigate or prosecute any alcohol or drug abuse patient.[facility] the event this information is protected by the Federal Confidentiality of Alcohol and Drug Abuse Patient Records regulations: The Federal rules restrict any use of the information to criminally investigate or prosecute any alcohol or drug abuse patient.[facility] the event this information is protected by the Federal Confidentiality of Alcohol and Drug Abuse Patient Records regulations: The Federal rules restrict any use of the information to criminally investigate or prosecute any alcohol or drug abuse patient.[facility] the event this information is protected by the Federal Confidentiality of Alcohol and Drug Abuse Patient Records regulations: The Federal rules restrict any use of the information to criminally investigate or prosecute any alcohol or drug abuse patient.[facility] the event this information is protected by the Federal Confidentiality of Alcohol and Drug Abuse Patient Records regulations: The Federal rules restrict any use of the information to criminally investigate or prosecute any alcohol or drug abuse patient.[facility] the event this information is protected by the Federal Confidentiality of Alcohol and Drug Abuse Patient Records regulations: The Federal rules restrict any use of the information to criminally investigate or prosecute any alcohol or drug abuse patient.[facility] the event this information is protected by the Federal Confidentiality of Alcohol and Drug Abuse Patient Records regulations: The Federal rules restrict any use of the information to criminally investigate or prosecute any alcohol or drug abuse patient.[facility] the event this information is protected by the Federal Confidentiality of Alcohol and Drug Abuse Patient Records regulations: The Federal rules restrict any use of the information to criminally investigate or prosecute any alcohol or drug abuse patient.[facility] the event this information is protected by the Federal Confidentiality of Alcohol and Drug Abuse Patient Records regulations: The Federal rules restrict any use of the information to criminally investigate or prosecute any alcohol or drug abuse patient.[facility] the event this information is protected by the Federal Confidentiality of Alcohol and Drug Abuse Patient Records regulations: The Federal rules restrict any use of the information to criminally investigate or prosecute any alcohol or drug abuse patient.[facility] the event this information is protected by the Federal Confidentiality of Alcohol and Drug Abuse Patient Records regulations: The Federal rules restrict any use of the information to criminally investigate or prosecute any alcohol or drug abuse patient.[facility] the event this information is protected by the Federal Confidentiality of Alcohol and Drug Abuse Patient Records regulations: The Federal rules restrict any use of the information to criminally investigate or prosecute any alcohol or drug abuse patient.[facility] the event this information is protected by the Federal Confidentiality of Alcohol and Drug Abuse Patient Records regulations: The Federal rules restrict any use of the information to criminally investigate or prosecute any alcohol or drug abuse patient.[facility] the event this information is protected by the Federal Confidentiality of Alcohol and Drug Abuse Patient Records regulations: The Federal rules restrict any use of the information to criminally investigate or prosecute any alcohol or drug abuse patient.[facility] the event this information is protected by the Federal Confidentiality of Alcohol and Drug Abuse Patient Records regulations: The Federal rules restrict any use of the information to criminally investigate or prosecute any alcohol or drug abuse patient.[facility] the event this information is protected by the Federal Confidentiality of Alcohol and Drug Abuse Patient Records regulations: The Federal rules restrict any use of the information to criminally investigate or prosecute any alcohol or drug abuse patient.[facility] the event this information is protected by the Federal Confidentiality of Alcohol and Drug Abuse Patient Records regulations: The Federal rules restrict any use of the information to criminally investigate or prosecute any alcohol or drug abuse patient.[facility] Hospital[facility] the event this information is protected by the Federal Confidentiality of Alcohol and Drug Abuse Patient Records regulations: The Federal rules restrict any use of the information to criminally investigate or prosecute any alcohol or drug abuse patient.[facility]In the event this information is protected by the Federal Confidentiality of Alcohol and Drug Abuse Patient Records regulations: The Federal rules restrict any use of the information to criminally investigate or prosecute any alcohol or drug abuse patient.[facility] the event this information is protected by the Federal Confidentiality of Alcohol and Drug Abuse Patient Records regulations: The Federal rules restrict any use of the information to criminally investigate or prosecute any alcohol or drug abuse patient.[facility] Reason for Visit (unrecogniz ed section and content) Reason Comments Insurance Authorization Patient Update Reason Comments Recheck 3 month follow up Reason Comments Results Reason Comments Recheck Follow up Reason Comments Results Reason Onset Date Comments Refill Request 05/04/2023 Reason Comments Pain Pt reported (RT) kne e pain x3 day, Hx surgery, denied fall. 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[employer] [address] [place] [address] Referral ID Status Reason Start Date Expiration Date Visits Requested Visits Authorized [id number] Pending Review PCP Requested Referral 06/07/2023 06/06/2024 1 1 Reason Comments [facility] Specialty Diagnoses / Procedures Referred By Contac t Referred To Contact [facility] Diagnoses Insufficiency fracture of femur, right, initial encounter (HCC) Acute pain of right knee Procedures CONSULT TO PHYSICAL THERAPY PHYSICAL THERAPY EVALUATION HIGH COMPLEX 45 MINS Kathi Moon PA-C [address] [place] [address] [facility] [address] [place] [address] Referral ID Status Reason Start Date Expiration Date V isits Requested Visits Authorized [id number] Closed Auto-Generate d Referral 07/28/2023 11/07/2023 1 1 Reason Comments Established Patient Knee Pain Results - Mri Reason Comments Patient Question Reason Comments Radio Gen RMP Specialty Diagnoses / Procedures Referred By Contac t Referred To Contact MR IMAGING Diagnoses Acute pain of right knee Procedures MRI KNEE WO IVCON RIGHT MRI ANY JT LOWER EXTREM W/O CONTRAST MATRL Kathi Moon PA-C [address] [place] [address] [place] [address] Referral ID Status Reason Start Date Expiration Date V isits Requested Visits Authorized [id number] Closed Auto-Generate d Referral 07/14/2023 08/12/2024 1 1 Reason Comments Radiology MRI Reason Comments Established Patient Follow Up Care Teams (unrecognized sec tion and content) Sweeper Driver Relationship Specialty Start Date End Date Natalia Vaca MD [address] [place] [address] PCP - General Internal Medicine 11/27/20 Sweeper Driver Relationship Specialty Start Date End Date Natalia Vaca MD [address] [place] [address] PCP - General Internal Medicine 11/27/20 Sweeper Driver Relationship Specialty Start Date End Date Natalia Vaca MD [address] [place] [address] PCP - General Internal Medicine 11/27/20 Sweeper Driver Relationship Specialty Start Date End Date Natalia Vaca MD [address] [place] [address] PCP - General Internal Medicine 11/27/20 Sweeper Driver Relationship Specialty Start Date End Date Natalia Vaca MD [address] [place] [address] PCP - General Internal Medicine 11/27/20 Sweeper Driver Relationship Specialty Start Date End Date Natalia Vaca MD [address] [facility] [place] [address] PCP - General Internal Medicine 11/27/20 Sweeper Driver Relationship Specialty Start Date End Date Natalia Vaca MD [address] [facility] [place] [address] PCP - General Internal Medicine 11/27/20 Sweeper Driver Relationship Specialty Start Date End Date Natalia Vaca MD [address] [facility] [address] PCP - General Internal Medicine 11/27/20 Sweeper Driver Relationship Specialty Start Date End Date Natalia Vaca MD [address] [facility] [address] PCP - General Internal Medicine 11/27/20 Sweeper Driver Relationship Specialty Start Date End Date Natalia Vaca MD [address] [facility] [address] PCP - General Internal Medicine 11/27/20 Sweeper Driver Relationship Specialty Start Date End Date Natalia Vaca MD [address] [facility] [address] PCP - General Internal Medicine 11/27/20 Sweeper Driver Relationship Specialty Start Date End Date Natalia Vaca MD [address] [facility] [address] PCP - General Internal Medicine 11/27/20 Sweeper Driver Relationship Specialty Start Date End Date Natalia Vaca MD [address] [facility] [address] PCP - General Internal Medicine 11/27/20 Sweeper Driver Relationship Specialty Start Date End Date Natalia Vaca MD [address] [facility] [address] PCP - General Internal Medicine 11/27/20 Sweeper Driver Relationship Specialty Start Date End Date Natalia Vaca MD [address] [facility] [address] PCP - General Internal Medicine 11/27/20 Sweeper Driver Relationship Specialty Start Date End Date Natalia Vaca MD [address] [place] [address] PCP - General Internal Medicine 11/27/20 Sweeper Driver Relationship Specialty Start Date End Date Natalia Vaca MD [address] [place] [address] PCP - General Internal Medicine 11/27/20 Sweeper Driver Relationship Specialty Start Date End Date Natalia Vaca MD [address] [place], [place] [address] PCP - General Internal Medicine 11/27/20 Sweeper Driver Relationship Specialty Start Date End Date Natalia Vaca MD [address] [place], [place] [address] PCP - General Internal Medicine 11/27/20 FOR RECORDS PERTAINING TO PATIENTS WHO ARE OR HAVE BEEN ENROLLED IN A CHEMICAL DEPENDENCY/SUBSTANCEABUSE PROGRAM, SOME INFORMATION MAY BE OMITTED. This clinical summary was aggregated from multiple sources. Caution should be exercised in using it in the provision of clinical care. This summary normalizes information from multiple sources, and as a consequence, information in this document may materially change the coding, format and clinical context of patient data. In addition, data may be omitted in some cases. CLINICAL DECISIONS SHOULD BE BASED ON THE PRIMARY CLINICAL RECORDS. [employer] provides no warranty or guarantee of the accuracy or completeness of information in this document.
[2023-12-13 21:40] VITALS: BP 102/52; PULSE 74; RESP 16; TEMP 36.8; O2SAT 94; O2SAT 96
[2023-12-13 21:49] VITALS: O2SAT 96
[2023-12-13 22:27] LABS: Mucous, Urine 0 SEEN /hpf (<or=2+); Red Blood Cells-Urine 0 SEEN /hpf (0-5); White Blood Cells 0 SEEN /hpf (0-5)
[2023-12-13 22:33] LABS: Color, Urine Yellow (Yellow); Glucose, Dipstick Normal (Normal); Ketone-Dipstick 5 mg/dl (Negative); Leukocyte Esterase-Dipstick 25 /ul (Negative); Nitrite-Dipstick Negative (Negative); Occult Blood-Urine Negative /ul (Negative); Protein-Dipstick 15 mg/dl (Negative); Specific Gravity, Urine 1.025 (1.002-1.030); Urine Clarity Clear (Clear); Urine Urobilinogen Normal (Normal)
[2023-12-13 22:40] LABS: Urine Bilirubin Dipstick 1 mg/dL (Negative)
[2023-12-13 22:41] LABS: Bacteria 1+ /hpf (None Seen); Squamous Epithelial Cells - UA 10-25 SEEN /hpf (5-10)
[2023-12-13] MEDS: proMETHazine 25 MG/ML Syringe 12.5 MG IM (22:58)
[2023-12-13 23:01] VITALS: BP 101/64; BP 101/74; PULSE 61; PULSE 70; RESP 17; TEMP 36.6; O2SAT 96; O2SAT 97
[2023-12-13 23:45] VITALS: BP 101/60; PULSE 68; RESP 18; TEMP 36.6; O2SAT 99
== END 2023-12-13 23:45 | disposition home or self-care (01) ==
PROVIDERS: Emergency Provider Emergency Medicine; PCP Nurse Practitioner; Visit Provider Emergency Medicine
DX: R11.2 Nausea with vomiting, unspecified (principal); R19.7 Diarrhea, unspecified; R00.2 Palpitations
CPT/HCPCS: 71045; 80048; 80053; 81001; 84484; 84703; 85025; 93005; 96361; 96372; 96374; 96376; 99285; A4216; J2405